=== PATIENT | male | born 1945 | race Caucasian/White ===

== ENCOUNTER 2017-09-30 05:02 | Inpatient (IN) | payer OTHER ==
[2017-09-30] VITALS (12 sets, daily range): BP systolic 132–180; BP diastolic 70–79; PULSE 61–83; RESP 18–20; TEMP 97.7–98.9; O2SAT 98–100
[~2017-09-30] VITALS: Ht 193 cm; Wt 123.6 kg
[2017-09-30] MEDS ORDERED: ZANTTAB PO (10:37)
[2017-09-30 10:58] LABS: AUTOMATED NEUTROPHIL # 3.8 TH/MM3 (1.8-7.7); BASOPHIL # 0.1 TH/MM3 (0-0.2); EOSINOPHIL % 0.1 % (0.0-4.0); HEMATOCRIT 24.2 % (39.0-51.0); HEMOGLOBIN 7.8 GM/DL (13.0-17.0); LYMPH % 13.4 % (9.0-44.0); LYMPHOCYTE # 0.7 TH/MM3 (1.0-4.8); MEAN CELL VOLUME 90.7 FL (80.0-100.0); MEAN CORPUSCULAR HEMOGLOBIN 29.2 PG (27.0-34.0); MEAN CORPUSCULAR HGB CONC 32.2 % (32.0-36.0); MEAN PLATELET VOLUME 8.5 FL (7.0-11.0); MONO % 14.5 % (0.0-8.0); MONOCYTE # 0.8 TH/MM3 (0-0.9); PLATELET COUNT 373 TH/MM3 (150-450); RED BLOOD COUNT 2.67 MIL/MM3 (4.50-5.90); RED CELL DISTRIBUTION WIDTH 16.9 % (11.6-17.2); WHITE BLOOD COUNT 5.3 TH/MM3 (4.0-11.0)
[2017-09-30] MEDS ORDERED: ONDANSETRON ODT 4 MG TAB PO PRN (11:00)
[2017-09-30 11:07] LABS: INTERNATIONAL NORMALIZED RATIO 1.2 RATIO; PROTHROMBIN TIME - PATIENT 12.1 SEC (9.8-11.6)
[2017-09-30 11:09] LABS: BICARBONATE 21.1 MEQ/L (21.0-32.0); CALCIUM 8.1 MG/DL (8.5-10.1); CREATININE 0.88 MG/DL (0.60-1.30)
--- NOTE | 2017-09-30 11:42 | RADRPT ---
EXAM DATE: 09/30/2017 11:29 AM EDT AGE/SEX: 72 years / Male INDICATIONS: Evaluate for pneumonia, pneumothorax, and communicable diseases. Pre-op intestines, per patient. CLINICAL DATA: This is the patient's initial encounter. Patient reports that signs and symptoms have been present for 1 day and indicates a pain score of 3/10. MEDICAL/SURGICAL HISTORY: None. None. COMPARISON: No prior exams available for comparison. FINDINGS: A single AP view of the chest demonstrates the lungs to be symmetrically aerated without evidence of mass, infiltrate or effusion. The cardiomediastinal contours are unremarkable. Osseous structures a re intact. CONCLUSION: No acute intrathoracic disease. Electronically signed by: Ruel Pierre MD 09/30/2017 11:40 AM EDT
--- NOTE | 2017-09-30 12:42 | HHI.PR ---
Subjective Subjective Notes No complaints. He has not felt lightheaded but has been taking it very easy. Does have some shortness of breath especially when he ambulates. Objective Vitals/I&O Vital Signs Date Time Temp Pulse Resp B/P (MAP) Pulse Ox O2 Delivery O2 Flow Rate FiO2 09/30/17 10:12 83 09/30/17 10:05 98.9 18 139/79 (99) 99 Labs Laboratory Tests Test 09/30/17 10:40 White Blood Count 5.3 Red Blood Count 2.67 Hemoglobin 7.8 Hematocrit 24.2 Mean Corpuscular Volume 90.7 Mean Corpuscular Hemoglobin 29.2 Mean Corpuscular Hemoglobin Concent 32.2 Red Cell Distribution Width 16.9 Platelet Count 373 Mean Platelet Volume 8.5 Neutrophils (%) (Auto) 71.0 Lymphocytes (%) (Auto) 13.4 Monocytes (%) (Auto) 14.5 Eosinophils (%) (Auto) 0.1 Basophils (%) (Auto) 1.0 Neutrophils # (Auto) 3.8 Lymphocytes # (Auto) 0.7 Monocytes # (Auto) 0.8 Eosinophils # (Auto) 0.0 Basophils # (Auto) 0.1 CBC Comment DIFF FINAL Differential Comment Prothrombin Time 12.1 Prothromb Time International Ratio 1.2 Activated Partial Thromboplast Time 25.5 Blood Urea Nitrogen 15 Creatinine 0.88 Random Glucose 101 Calcium Level 8.1 Sodium Level 143 Potassium Level 4.0 Chloride Level 113 Carbon Dioxide Level 21.1 Anion Gap 9 Estimat Glomerular Filtration Rate 85 Narrative Exam NAD Abd: soft, ntd Mildly pale A/P Assessment and Plan 72 yo M with small bowel mass and mesenteric involvement. Hemoglobin 7.8, symptomatic with shortness of breath. Will transfuse in preparation for exploratory laparotomy and small bowel resection tomorrow. Danial Brock MD Sep 30, 2017 12:41
[2017-09-30] MEDS: LACTATED RINGER'S 1000 ML INJ 1,000 ML IV SCH (15:11)
[2017-09-30] MEDS: FAMOTIDINE 20 MG TAB PO SCH (19:59)
[2017-10-01] VITALS (9 sets, daily range): BP systolic 125–161; BP diastolic 71–79; PULSE 56–81; RESP 16–20; TEMP 97.6–98.5; O2SAT 93–100
[2017-10-01] MEDS: LACTATED RINGER'S 1000 ML INJ 1,000 ML IV SCH ×2 (00:40→04:59)
--- NOTE | 2017-10-01 07:42 | EKG ---
Date Performed: 09/30/2017 Time Performed: 14:00:42 PTAGE: 72 years EKG: Sinus rhythm NORMAL ECG NO PREVIOUS TRACING DOCTOR: Ron Navas Interpretating Date/Time 10/01/2017 07:41:40
[2017-10-01] MEDS: FAMOTIDINE 20 MG TAB PO SCH ×2 (08:39→22:10)
[2017-10-01 09:24] LABS: HEMATOCRIT 27.9 % (39.0-51.0); HEMOGLOBIN 9.1 GM/DL (13.0-17.0); MEAN CELL VOLUME 90.5 FL (80.0-100.0); MEAN CORPUSCULAR HEMOGLOBIN 29.7 PG (27.0-34.0); MEAN CORPUSCULAR HGB CONC 32.8 % (32.0-36.0); MEAN PLATELET VOLUME 8.5 FL (7.0-11.0); PLATELET COUNT 343 TH/MM3 (150-450); RED BLOOD COUNT 3.08 MIL/MM3 (4.50-5.90); RED CELL DISTRIBUTION WIDTH 15.7 % (11.6-17.2); WHITE BLOOD COUNT 3.7 TH/MM3 (4.0-11.0)
[2017-10-01] MEDS ORDERED: ACETAMINOPHEN 1000 MG/100 ML 100 ML IV ONE (11:48)
[2017-10-01] MEDS ORDERED: ePHEDrine/NS 25 MG/5 ML SYRINGE IV ONE (12:00)
[2017-10-01] MEDS ORDERED: ROCURONIUM INJ 50 MG/5 ML SYRINGE IV PUSH ONE (12:00)
[2017-10-01] MEDS ORDERED: LIDOCAINE HCL 1% PF 5 ML SYRINGE OTHER ONE (12:00)
[2017-10-01] MEDS ORDERED: ONDANSETRON HCL 4 MG/2 ML VIAL IV ONE (12:00)
[2017-10-01] MEDS ORDERED: PROPOFOL 200 MG/20 ML AMP IV ONE (12:00)
[2017-10-01] MEDS ORDERED: NEOSTIGMINE 5 MG/5 ML SYRINGE IV PUSH ONE (12:00)
[2017-10-01] MEDS ORDERED: GLYCOPYRROLATE 1 MG/5 ML SYRINGE IV PUSH ONE (12:00)
[2017-10-01] MEDS ORDERED: DEXAMETHASONE SOD PHOS 4 MG/ML VIAL IV ONE (12:00)
[2017-10-01] MEDS ORDERED: fentaNYL CITRATE 250 MCG/5 ML AMP ONE (12:46)
[2017-10-01] MEDS ORDERED: ceFAZolin 2 GM PREMIX 50 ML ONE (13:10)
[2017-10-01] MEDS ORDERED: metroNIDAZOLE 500 MG INJ 100 ML IV ONE (13:10)
[2017-10-01] MEDS ORDERED: NALOXONE HCL 0.4 MG/ML AMP IV PUSH PRN ×2 (15:00)
[2017-10-01] MEDS ORDERED: diphenhydrAMINE HCL 50 MG/ML VIAL IV PUSH PRN (15:00)
[2017-10-01] MEDS ORDERED: Post-op Orders (for Pharmacy) XX ONE (15:00)
[2017-10-01] MEDS ORDERED: *morphine SULFATE 8 MG/ML PERIprocedure ONLY ONE (15:02)
--- NOTE | 2017-10-01 15:07 | PD.OP ---
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 Extensive mesenteric metastatic disease extending to and involving SMA making this tumor unresectable. Case discussed with radiology Dr. Huffman who also felt that SMA is encircled on recent CT enterogram. Separate loop of small intestine adherent to tumor and omentum coming through an internal hernia. Procedure in detail: The patient was taken to the operating room placed in supine position. General endotracheal anesthesia was induced. The abdomen was prepped and draped in usual sterile fashion and a surgical timeout performed to verify correct patient procedure and site. A lower midline laparotomy incision was made. Electrocautery used to dissect through subcutaneous tissue and the fascia incised. Peritoneum was bluntly entered. On exploration the small bowel mass was immediately encountered and noted to be quite large. The mesentery was also somewhat foreshortened. The laparotomy was extended cephalad. The Bookwalter retractor was placed. On further exploration there was noted to be an approximately 15 cm length of small intestine which was involved with a small intestine tumor. There is extensive mesenteric metastatic disease extending to and involving the SMA which was easily palpable at the level of the tumor. This appeared to be unresectable by both myself and Dr. Mundo Rendon. The case was discussed by phone with both Dr. Ovidio Sumner and Dr. Huffman of radiology. The tumor was felt to be involving fairly high up on the SMA and felt that it was encircling the SMA. We decided that unfortunately this was unresectable. Involved in the mesenteric disease was what appeared to be a replaced lymph node which was removed with the harmonic scalpel and sent for permanent specimen. Vessels of the mesentery were not divided and the bowel remained perfused. A loop of small bowel was adherent to the tumor and is causing internal hernia with omentum also stuck to the tumor. The omentum was divided and placed in the appropriate position. We now prepared for closure. A piece of Seprafilm was placed between the bowel and the omentum. A piece of Seprafilm was placed on top of the omentum. The incision was closed with running #1 looped PDS and wide skin munira. The patient tolerated the procedure well was extubated and taken to PACU in stable condition. Danial Brock MD Oct 01, 2017 15:07
[2017-10-01] MEDS: KETOROLAC TROMETHAMINE 30 MG/ML (IVP) VIAL IV PUSH SCH ×2 (15:34→22:10)
[2017-10-01] MEDS: HYDROmorphone HCL PCA 6 MG/30 ML IV SCH ×2 (15:39→21:03)
[2017-10-01] MEDS: PCA - TOTAL MG DILAUDID DELIVERED PER SHIFT OTHER SCH ×2 (16:00→22:00)
[2017-10-01] MEDS ORDERED: DO NOT ADM ANY ANTICOAGULANT DRUGS PRN (16:00)
[2017-10-01] MEDS ORDERED: ACETAMINOPHEN 1000 MG/100 ML 100 ML IV SCH (16:00)
[2017-10-01] MEDS: ACETAMINOPHEN 1000 MG/100 ML 100 ML IV SCH ×2 (17:55→23:56)
[2017-10-02] VITALS (8 sets, daily range): BP systolic 128–161; BP diastolic 64–87; PULSE 64–74; RESP 17–19; TEMP 97.2–98.1; O2SAT 96–98
[2017-10-02] MEDS: KETOROLAC TROMETHAMINE 30 MG/ML (IVP) VIAL IV PUSH SCH ×4 (04:13→21:20)
[2017-10-02] MEDS: LACTATED RINGER'S 1000 ML INJ 1,000 ML IV SCH (04:14)
[2017-10-02] MEDS: PCA - TOTAL MG DILAUDID DELIVERED PER SHIFT OTHER SCH ×3 (06:00→21:24)
[2017-10-02] MEDS: ACETAMINOPHEN 1000 MG/100 ML 100 ML IV SCH ×2 (06:08→12:48)
[2017-10-02 07:24] LABS: AUTOMATED NEUTROPHIL # 9.7 TH/MM3 (1.8-7.7); BASOPHIL % 0.2 % (0.0-2.0); HEMATOCRIT 31.5 % (39.0-51.0); HEMOGLOBIN 10.2 GM/DL (13.0-17.0); LYMPH % 3.4 % (9.0-44.0); LYMPHOCYTE # 0.4 TH/MM3 (1.0-4.8); MEAN CELL VOLUME 89.9 FL (80.0-100.0); MEAN CORPUSCULAR HEMOGLOBIN 29.3 PG (27.0-34.0); MEAN CORPUSCULAR HGB CONC 32.5 % (32.0-36.0); MONO % 17.6 % (0.0-8.0); MONOCYTE # 2.2 TH/MM3 (0-0.9); NEUT % 78.8 % (16.0-70.0); PLATELET COUNT 352 TH/MM3 (150-450); RED CELL DISTRIBUTION WIDTH 15.8 % (11.6-17.2); WHITE BLOOD COUNT 12.2 TH/MM3 (4.0-11.0)
[2017-10-02 08:41] LABS: BICARBONATE 22.6 MEQ/L (21.0-32.0); CALCIUM 8.4 MG/DL (8.5-10.1); CREATININE 1.01 MG/DL (0.60-1.30)
[2017-10-02] MEDS: FAMOTIDINE 20 MG TAB PO SCH ×2 (10:19→21:19)
[2017-10-02 10:34] LABS: BANDS 11 % (0-6); LYMPHOCYTES 11 % (9-44); MONOCYTES 12 % (0-8); NEUTROPHIL # MANUAL DIFF 9.4 TH/MM3 (1.8-7.7); POLYS (SEG NEUTROPHILS) 66 % (16-70)
[2017-10-02] MEDS: HYDROmorphone HCL PCA 6 MG/30 ML IV SCH (10:42)
--- NOTE | 2017-10-02 12:31 | HHI.PR ---
Subjective Subjective Notes Pain well controlled. Belching, minimal flatus. Has audible wheezing. Denies SOB. Has not been OOB yet. Objective Vitals/I&O Vital Signs Date Time Temp Pulse Resp B/P (MAP) Pulse Ox O2 Delivery O2 Flow Rate FiO2 10/02/17 12:09 97.2 65 18 136/69 (91) 98 10/02/17 10:10 Nasal Cannula 2.00 Labs Laboratory Tests Test 10/02/17 06:32 White Blood Count 12.2 Red Blood Count 3.50 Hemoglobin 10.2 Hematocrit 31.5 Mean Corpuscular Volume 89.9 Mean Corpuscular Hemoglobin 29.3 Mean Corpuscular Hemoglobin Concent 32.5 Red Cell Distribution Width 15.8 Platelet Count 352 Mean Platelet Volume 9.0 Neutrophils (%) (Auto) 78.8 Lymphocytes (%) (Auto) 3.4 Monocytes (%) (Auto) 17.6 Eosinophils (%) (Auto) 0.0 Basophils (%) (Auto) 0.2 Neutrophils # (Auto) 9.7 Lymphocytes # (Auto) 0.4 Monocytes # (Auto) 2.2 Eosinophils # (Auto) 0.0 Basophils # (Auto) 0.0 CBC Comment AUTO DIFF Differential Total Cells Counted 100 Neutrophils % (Manual) 66 Band Neutrophils % 11 Lymphocytes % 11 Monocytes % 12 Neutrophils # (Manual) 9.4 Differential Comment FINAL DIFF MANUAL Platelet Estimate NORMAL Platelet Morphology Comment NORMAL Polychromasia 2.0 Blood Urea Nitrogen 13 Creatinine 1.01 Random Glucose 129 Calcium Level 8.4 Sodium Level 138 Potassium Level 4.4 Chloride Level 105 Carbon Dioxide Level 22.6 Anion Gap 10 Estimat Glomerular Filtration Rate 73 Narrative Exam NAD Audible wheezing, nonlabored breathing Abd: moderate distention, binder, dressing in place A/P Assessment and Plan 72 yo M POD 1 ex lap, mesenteric biopsy. Small bowel mass unresectable. Had long discussion with patient about findings, plan, prognosis. He would like to see oncology in [place] after discharge. Path pending. Cont clears. OOB. 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 D/c IVF and give duonebs. VinodDanial MD Oct 02, 2017 12:31
[2017-10-02] MEDS: ENOXAPARIN SODIUM 40 MG/0.4 ML SYRINGE SQ SCH (14:17)
[2017-10-02] MEDS: RESP: ALBUTEROL 2.5 MG/IPRATROPIUM 0.5 MG NEB (SCH) NEB ×2 (16:52→21:03)
[2017-10-03] VITALS (11 sets, daily range): BP systolic 130–141; BP diastolic 62–76; PULSE 60–82; RESP 17–28; TEMP 97.4–98.3; O2SAT 96–99
[2017-10-03] MEDS: KETOROLAC TROMETHAMINE 30 MG/ML (IVP) VIAL IV PUSH SCH ×4 (03:43→22:14)
[2017-10-03] MEDS: RESP: ALBUTEROL 2.5 MG/IPRATROPIUM 0.5 MG NEB (SCH) NEB ×4 (04:36→21:01)
[2017-10-03] MEDS: PCA - TOTAL MG DILAUDID DELIVERED PER SHIFT OTHER SCH (05:58)
--- NOTE | 2017-10-03 07:41 | HHI.PR ---
Subjective Subjective Notes Pain controlled. Had some bloody oozing from midline incision. Belching but minimal flatus. Objective Vitals/I&O Vital Signs Date Time Temp Pulse Resp B/P (MAP) Pulse Ox O2 Delivery O2 Flow Rate FiO2 10/03/17 05:58 18 10/03/17 04:00 98.2 61 136/76 (96) 98 10/02/17 21:05 Nasal Cannula 1.00 Narrative Exam NAD Nonlabored breathing, wheezing improved Abd: moderate distention, binder, midportion of incision with dried small amt of blood A/P Assessment and Plan 72 yo M POD 2 ex lap, mesenteric biopsy. Small bowel mass unresectable. Pain well controlled, has not had return of bowel function. D/c MERCH[employer]ISING [employer], start oral meds. Cont clears and start reglan. Danial Brock MD Oct 03, 2017 07:41
[2017-10-03] MEDS ORDERED: HYDROmorphone HCL PF 0.5 MG/0.5 ML SYRINGE IV PUSH PRN (07:45)
[2017-10-03] MEDS ORDERED: ACETAMINOPHEN/HYDROcodone 325 MG/5 MG TAB PO PRN (07:45)
[2017-10-03] MEDS: FAMOTIDINE 20 MG TAB PO SCH ×2 (08:54→20:08)
[2017-10-03] MEDS: ACETAMINOPHEN/HYDROcodone 325 MG/5 MG TAB PO PRN ×3 (08:56→20:12)
[2017-10-03] MEDS: METOCLOPRAMIDE HCL 10 MG/2 ML VIAL IV PUSH SCH ×3 (08:56→23:51)
[2017-10-03] MEDS: ENOXAPARIN SODIUM 40 MG/0.4 ML SYRINGE SQ SCH (14:34)
[2017-10-04] VITALS (9 sets, daily range): BP systolic 127–139; BP diastolic 65–74; PULSE 60–90; RESP 16–20; TEMP 97–98.3; O2SAT 96–98
[2017-10-04] MEDS: RESP: ALBUTEROL 2.5 MG/IPRATROPIUM 0.5 MG NEB (SCH) NEB ×4 (04:00→21:20)
[2017-10-04] MEDS: KETOROLAC TROMETHAMINE 30 MG/ML (IVP) VIAL IV PUSH SCH ×4 (04:44→21:37)
[2017-10-04] MEDS: ACETAMINOPHEN/HYDROcodone 325 MG/5 MG TAB PO PRN ×5 (05:04→22:16)
[2017-10-04 06:23] LABS: HEMATOCRIT 26.5 % (39.0-51.0); HEMOGLOBIN 8.8 GM/DL (13.0-17.0); MEAN CELL VOLUME 89.4 FL (80.0-100.0); MEAN CORPUSCULAR HEMOGLOBIN 29.8 PG (27.0-34.0); MEAN CORPUSCULAR HGB CONC 33.3 % (32.0-36.0); MEAN PLATELET VOLUME 8.6 FL (7.0-11.0); PLATELET COUNT 288 TH/MM3 (150-450); RED BLOOD COUNT 2.96 MIL/MM3 (4.50-5.90); RED CELL DISTRIBUTION WIDTH 15.6 % (11.6-17.2); WHITE BLOOD COUNT 4.8 TH/MM3 (4.0-11.0)
[2017-10-04 06:53] LABS: ALBUMIN 2.9 GM/DL (3.4-5.0); AST (GOT) 16 U/L (15-37); BICARBONATE 25.9 MEQ/L (21.0-32.0); BLOOD UREA NITROGEN 11 MG/DL (7-18); CALCIUM 8.3 MG/DL (8.5-10.1); CHLORIDE 106 MEQ/L (98-107); CREATININE 0.97 MG/DL (0.60-1.30); GLOMERULAR FILTRATION RATE 76 ML/MIN (>89); GLUCOSE,RANDOM 87 MG/DL (74-106); SODIUM (NA) 141 MEQ/L (136-145)
[2017-10-04 06:54] LABS: ALT (GPT) 15 U/L (12-78)
[2017-10-04 06:56] LABS: ALKALINE PHOSPHATASE 44 U/L (45-117); TOTAL BILIRUBIN ADULT 0.8 MG/DL (0.2-1.0); TOTAL PROTEIN 5.8 GM/DL (6.4-8.2)
[2017-10-04] MEDS: METOCLOPRAMIDE HCL 10 MG/2 ML VIAL IV PUSH SCH ×2 (09:30→16:15)
[2017-10-04] MEDS: FAMOTIDINE 20 MG TAB PO SCH ×2 (09:30→20:07)
--- NOTE | 2017-10-04 13:10 | HHI.PR ---
Subjective Subjective Notes pt lying in bed comfortably no complaints passing gas Objective Vitals/I&O Vital Signs Date Time Temp Pulse Resp B/P (MAP) Pulse Ox O2 Delivery O2 Flow Rate FiO2 10/04/17 09:13 98 Nasal Cannula 2.00 10/04/17 08:30 60 10/04/17 08:00 97.0 16 137/71 (93) Labs Laboratory Tests Test 10/04/17 05:35 White Blood Count 4.8 Red Blood Count 2.96 Hemoglobin 8.8 Hematocrit 26.5 Mean Corpuscular Volume 89.4 Mean Corpuscular Hemoglobin 29.8 Mean Corpuscular Hemoglobin Concent 33.3 Red Cell Distribution Width 15.6 Platelet Count 288 Mean Platelet Volume 8.6 Blood Urea Nitrogen 11 Creatinine 0.97 Random Glucose 87 Total Protein 5.8 Albumin 2.9 Calcium Level 8.3 Alkaline Phosphatase 44 Aspartate Amino Transf (AST/SGOT) 16 Alanine Aminotransferase (ALT/SGPT) 15 Total Bilirubin 0.8 Sodium Level 141 Potassium Level 3.9 Chloride Level 106 Carbon Dioxide Level 25.9 Anion Gap 9 Estimat Glomerular Filtration Rate 76 Abdomen: Post-op tenderness Extremities: Perfused Narrative Exam serosang drainage on dressing small amount Wound Wound : Wound Location: Abdomen Dressing: Dry A/P Assessment and Plan pt doing well advance diet as tolerated possible d/c home tomorrow Anant Peunte MD Oct 04, 2017 13:10
[2017-10-04] MEDS ORDERED: MAGNESIUM HYDROXIDE SUSP 30 ML CUP PO PRN (13:15)
[2017-10-04] MEDS: ENOXAPARIN SODIUM 40 MG/0.4 ML SYRINGE SQ SCH (13:37)
[2017-10-05] VITALS: BP 147/70; PULSE 67; PULSE 72; RESP 20; TEMP 97.6; O2SAT 97
[2017-10-05] MEDS: METOCLOPRAMIDE HCL 10 MG/2 ML VIAL IV PUSH SCH ×2 (00:07→07:57)
[2017-10-05] MEDS: RESP: ALBUTEROL 2.5 MG/IPRATROPIUM 0.5 MG NEB (SCH) NEB ×2 (03:31→10:58)
[2017-10-05] MEDS: KETOROLAC TROMETHAMINE 30 MG/ML (IVP) VIAL IV PUSH SCH ×2 (03:40→09:57)
[2017-10-05] MEDS: ACETAMINOPHEN/HYDROcodone 325 MG/5 MG TAB PO PRN (03:41)
[2017-10-05 04:00] VITALS: BP 169/81; PULSE 74; PULSE 79; RESP 20; TEMP 97.7; O2SAT 96
[2017-10-05] MEDS: FAMOTIDINE 20 MG TAB PO SCH (07:57)
[2017-10-05 08:00] VITALS: BP 135/90; PULSE 78; RESP 18; TEMP 98; O2SAT 99
[2017-10-05 08:40] VITALS: PULSE 70
[2017-10-05 10:57] VITALS: RESP 18
[2017-10-05] MEDS ORDERED: COLA100C5 PO (11:10)
[2017-10-05] MEDS ORDERED: NORC5TAB PO (11:10)
--- NOTE | 2017-10-05 11:12 | HHI.PR ---
Subjective Subjective Notes pt comfortable passing gas Objective Vitals/I&O Vital Signs Date Time Temp Pulse Resp B/P (MAP) Pulse Ox O2 Delivery O2 Flow Rate FiO2 10/05/17 11:02 21 10/05/17 08:40 70 10/05/17 04:00 97.7 20 169/81 (110) 96 10/04/17 21:20 Nasal Cannula 2.00 Abdomen: Post-op tenderness Wound Wound : Wound Location: Abdomen Appearance: Clean & Dry A/P Assessment and Plan pt doing well D/C home today f/u dr valencia next week Anant Puente MD Oct 05, 2017 11:12
== END 2017-10-05 13:00 | disposition home or self-care (01) | DRG 825 ==
LOC: EDSTATUS 05:02 → HCIN 09:08 → N06B 10-01 20:21
PROVIDERS: ADMIT Surgery; ATTEND Surgery
PROC: 0DNU0ZZ Release Omentum, Open Approach (ICD-10-PCS; principal; 2017-09-30)
PROC: 07BB0ZX Excision of Mesenteric Lymphatic, Open Approach, Diagnostic (ICD-10-PCS; 2017-09-30)
PROC: 3E0M05Z Introduction of Adhesion Barrier into Peritoneal Cavity, Open Approach (ICD-10-PCS; 2017-09-30)
DX: C83.38 Diffuse large B-cell lymphoma, lymph nodes of multiple sites (principal); D63.0 Anemia in neoplastic disease; K21.9 Gastro-esophageal reflux disease without esophagitis; K46.9 Unspecified abdominal hernia without obstruction or gangrene; R06.2 Wheezing; F41.9 Anxiety disorder, unspecified; Z87.891 Personal history of nicotine dependence; Z98.1 Arthrodesis status; Z96.652 Presence of left artificial knee joint
CPT/HCPCS: 36430; 71045; 76937; 80048; 80053; 85007; 85025; 85027; 85610; 85730; 86850; 86900; 86901; 86920; 88305; 88341; 88342; 93005; 94150; 94640; 94664; C1765; J0131; J0690; J1100; J1170; J1650; J1885; J2270; J2405; J2710; J2765; J3010; J7120; P9016

== ENCOUNTER 2018-01-20 13:20 | Inpatient (IN) ==
[2018-01-20] MEDS ORDERED: Bisacodyl 10 MG Supp RECTAL PRN (17:27)
--- NOTE | 2018-01-20 17:27 | P.CONGS ---
[facility] Gen Surgery Consult Note Consult date: 01/20/18 Narrative: 72 yo M with abdominal pain, bloating, decreased oral intake for 10 days, worse for the last 3 days. He has a h/o GI bleed noted to be secondary to small bowel mass and underwent exploratory laparotomy revealing large mass of root of mesentery with associated small bowel involvement. Resection was unable to be performed and biopsy revealed large B cell lymphoma. He has undergo two cycles of chemotherapy under care of Dr. Catherine with good response based on recent PET /CT. He has continued to have bowel movts but they have been liquid. For two days he has only tolerated saltine crackers. Review of Systems All other systems reviewed negative except as stated in [facility] - History History Provided By: Patient - Medical History Medical History: Medical History (Last Reviewed 10/28/17 @ 09:10 by Yudy Frederick RN) Abdominal mass Anemia Compression of sciatic nerve GERD (gastroesophageal reflux disease) - Surgical History Surgical History: Surgical History (Last Updated 10/28/17 @ 09:35 by Yudy Frederick RN) H/O abdominal surgery H/O shoulder surgery History of tonsillectomy and adenoidectomy Status post left partial knee replacement - Tobacco History Second Hand Smoke Exposure: No Smoking Status: Former smoker - Alcohol History How Often Do You Have a Drink Containing Alcohol: Never - Substance Use History Substance History: No History of Abuse Medications and Allergies Allergies Allergy/AdvReac Type Severity Reaction Status Date / Time No Known Allergies Allergy Verified 12/03/17 10:18 Home Medications Medication Instructions Recorded Confirmed Type docusate sodium 100 mg PO DAILY PRN 10/24/17 10/28/17 History ferrous sulfate 325 mg PO DAILY 10/24/17 10/28/17 History ranitidine HCl [Zantac] 150 mg PO BID 10/24/17 10/28/17 History Exam Vital signs: Vital Signs 01/20/18 16:25 Temperature 98.1 F Pulse Rate 80 Respiratory Rate 18 Blood Pressure 137/82 Pulse Oximetry 98 Intake & Output 01/19/18 01/20/18 01/20/18 18:59 06:59 18:59 Weight 113.398 kg Other: Date of Last Bowel Movement 01/19/18 Weight On Admission 113.398 kg Narrative: GENERAL: Awake and alert. No acute distress. Cooperative. HEAD: Normocephalic. Atraumatic. EYES: Pupils equal round and reactive to light bilaterally. No scleral icterus. ENT: Moist oral mucosa. NECK: Trachea midline. CHEST: Nonlabored breathing. No respiratory distress. CARDIOVASCULAR: Regular rate and rhythm. ABDOMEN: soft, well healed midline scar. mild distention. Nontender. EXTREMITIES: No cyanosis or edema. SKIN: Warm, dry, nonjaundiced. Assessment and Plan - Assessment (1) Small bowel obstruction Code(s): K56.609 - Unspecified intestinal obstruction, unspecified as to partial versus complete obstruction Status: Acute (2) Lymphoma of gastrointestinal tract Code(s): C85.93 - Non-Hodgkin lymphoma, unspecified, intra-abdominal lymph nodes Status: Acute - Plan Partial or complete small bowel obstruction- Check KUB. May need CT a/p with oral contrast. Continue NPO.
[2018-01-20] MEDS ORDERED: KCL 20 mEq/NACL 0.45% Inj 1,000 ML IV.CONT SCH (17:30)
--- NOTE | 2018-01-20 18:18 | XR ---
EXAM DATE: 01/20/2018 12:00 AM EDT AGE/SEX: 72 years / Male INDICATIONS: Obstruction. CLINICAL DATA: This is the patient's initial encounter. Patient reports that signs and symptoms have been present for 1 day and indicates a pain score of 0/10. MEDICAL/SURGICAL HISTORY: . Lymphoma. Chronic obstructive pulmonary disease. None. COMPARISON: No prior exams available for comparison. FINDINGS: There is dilated small bowel in the left mid abdomen. Stool seen within colon. The colon is not dist ended. Free air is not seen. There is degenerative change in the lower lumbar spine. CONCLUSION: Dilated small bowel in the left mid abdomen concerning for some degree of obstruction. Electronically signed by: Tavares Valdez MD 01/20/2018 6:17 PM EDT
[2018-01-20] MEDS: NACL 0.9% IV.CONT SCH ×2 (19:25→20:08)
[2018-01-20] MEDS: POTASSIUM CHLORIDE IV.CONT SCH ×2 (19:25→20:08)
[2018-01-20] MEDS: DEXTROSE IV.CONT SCH ×2 (19:25→20:08)
--- NOTE | 2018-01-20 19:29 | MH ---
cc: Lydia Catherine MD DATE OF ADMISSION: 01/20/2018 ADMISSION DIAGNOSIS: Partial small-bowel obstruction. SECONDARY DIAGNOSES: 1. Mesenteric large B-cell lymphoma. 2. History of gastrointestinal bleed. 3. Anemia. 4. Abdominal pain. HISTORY OF PRESENT ILLNESS: Mr. Reina is a 72-year-old man, well known patient, who presented with a history of blood loss anemia about a year and a half ago. Evaluation showed a nodular mass in the small bowel mesentery in the left mid abdomen. Additionally, there were 2 exophytic masses involving the lateral left kidney. Exploratory surgery was performed by Dr. Brock on 10/01/2017. The mesenteric mass biopsy showed a large cell B-cell lymphoma. He was treated with R-CHOP chemotherapy with his first cycle on 12/09/2017. He tolerated his cycles of chemotherapy well. Interim evaluation by CT PET scan showed resolution of the previous hypermetabolic left lower quadrant mass in the left lateral chest subcutaneous nodule. These were the sites of initial disease. There is, however, interval development of moderate dilatation of small loops of bowel in the right lower quadrant and small hypermetabolic focus either within or adjacent to the dilated loop of bowel without correlating to CT abnormality. Mr. Reina comes in today [address] PET scan with persistent symptoms. He has had a decrease in appetite in the last 2 weeks. His p.o. intake has decreased significantly. Despite the decreased p.o. intake, his abdominal girth has increased. He is quite distended. He could not fit into certain pants. He denies any melena or bright red blood per rectum. His stools have turned liquidy. He denies any urinary complaints. He has no fever. He has had cramping abdominal pain, which is quite uncomfortable. He was seen in clinic today for his cycle #3 of rituximab-CHOP chemotherapy. We discussed proceeding with the rituximab awaiting a bed for admission for his partial small-bowel obstruction. His admission was coordinated with Dr. Frank Rose, of [facility] and Dr. Danial Brock, who is the patient's surgeon. REVIEW OF SYSTEMS: The rest of his review of system is negative. Denies any fevers, chills, night sweats. He was doing well after his chemotherapy. He has resumed his physical activity. His anemia has improved. He denies any GI bleed. His hemoglobin is actually improved. A CBC from [facility] on 01/16/2018 shows a normal comprehensive metabolic panel with a BUN of 13, creatinine 0.99. Liver functions are normal. LDH is 191. WBC was 5.4, hemoglobin 11.3, improved from before, and platelet count of 405. PAST MEDICAL HISTORY: 1. Erectile dysfunction. 2. Mesenteric B-cell lymphoma/non Hodgkin lymphoma. 3. GI bleed. 4. Iron deficiency anemia secondary to GI bleed. PAST SURGICAL HISTORY: 1. Colonoscopy. 2. Tonsillectomy. 3. Exploratory surgery. 4. Port placement. FAMILY HISTORY: Significant for a paternal grandfather with lung cancer. No other family history of cancer. SOCIAL HISTORY: He is single. 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 He quit smoking 20 years ago. He drinks occasionally. He has a supportive friend who brings him to his appointments. ALLERGIES: NO KNOWN DRUG ALLERGIES. CURRENT MEDICATIONS: Include: 1. Zantac. 2. Stool softener. 3. Oral iron supplement. PHYSICAL EXAMINATION: VITAL SIGNS: Temperature 98.1, heart rate 80, respiratory rate 18, blood pressure 137/82, saturation 100%. GENERAL: Mr. Reina is a well-developed, well-nourished man who looks younger than stated age. HEENT: His pupils are round and reactive to light and accommodation. Oropharynx is clear. NECK: Supple. LUNGS: Clear. CARDIOVASCULAR: Reveals a normal rate and rhythm. ABDOMEN: Distended from previous exams. There are a lot of bowel sounds. There is a diffuse tenderness, but the abdomen is soft. No guarding or rebound. There is significant distention with no mass appreciated. EXTREMITIES: Lower extremities with no edema. NEUROLOGIC: Nonfocal. LABORATORY DATA: As described above, normal comprehensive metabolic panel on 01/16/2018. ASSESSMENT AND PLAN: Mr. Reina is a 72-year-old man with a history of gastrointestinal bleed, who was found to have a diffuse large B-cell lymphoma in the mesentery. He also had a metastatic lesion in the left flank area. He has had an excellent response to rituximab-CHOP chemotherapy with resolution of the sites of disease. His course is complicated by abdominal pain, bloating and evidence for a partial small-bowel obstruction. He is having intermittent watery bowel movements. He is significantly uncomfortable. He has had no resolution of symptoms over the past 2 weeks. He is admitted to the hospital for a consultation with the paratransit operator possibly and with Dr. Brock, his surgeon. We discussed continued conservative management with n.p.o. and intravenous fluid hydration support. A dietitian will be consulted tomorrow for possible total parenteral nutrition depending on how long he needs to be n.p.o. CT scan of the abdomen and pelvis will be coordinated to assist with Dr. Brock's evaluation. He has had resolution of disease in the root of the mesentery; however, there is evidence of the bowel obstruction. A CT scan would hopefully assist in determining the area of obstruction. He was able to receive his Rituxan chemotherapy. Cytotoxic chemotherapy CHOP was held pending resolution of his partial small-bowel obstruction. His questions were answered to his satisfaction. MD NOY Stiles/shelly , 06:48 PM , 07:02 PM
[2018-01-20] MEDS: Senna/Docusate Sodium 8.6/50 MG Tablet PO SCH (20:06)
[2018-01-20] MEDS: KCL 20 mEq/D5W/NaCl 0.9% Inj 1,000 ML IV.SIG SCH (20:08)
[2018-01-20] MEDS ORDERED: Diatrizoate Meglum/Diatrizoate Sod Liq 9 ML UDC PO ONE (21:45)
--- NOTE | 2018-01-21 00:37 | CT ---
EXAM DATE: 01/21/2018 12:06 AM EDT AGE/SEX: 72 years / Male INDICATIONS: Abdominal distention. CLINICAL DATA: This is the patient's initial encounter. Patient reports that signs and symptoms have been present for 1 day and indicates a pain score of 6/10. MEDICAL/SURGICAL HISTORY: . small bowel mass, chemo None. ORAL CONTRAST: Prescribed oral contrast ingested. RADIATION DOSE: 15.08 CTDI (mGy) COMPARISON: POI, CT ENTEROGRAPHY, 09/24/2017. TLI, PET/CT TUMOR, 01/15/2018. . TECHNIQUE: Multiple contiguous axial images were obtained through the abdomen and pelvis following b olus infusion of 93 ml Omnipaque 350 (iohexol) nonionic water-soluble contrast as a single exam dos e. Prescribed oral contrast ingested. Using automated exposure control and adjustment of the mA and/ or kV according to patient size, radiation dose was kept as low as reasonably achievable to obtain op timal diagnostic quality images. DICOM format image data is available electronically for review and comparison. FINDINGS: Lower chest: No acute abnormality is identified. Hepatobiliary: No focal liver lesion is identified. Hepatic vasculature demonstrates no abnormality. No calcified gallstones are present. Kidneys: No hydronephrosis, stone, or mass. There are 2 low-density lesions in the right kidney measu ring 2.7 cm and 4.3 cm, both of which have density measurements characteristic of cirrhosis. A small lesion in the right mid kidney is also too small to characterize. There are 2 exophytic lesions arisi ng from the left kidney measuring 1.7 and 2.9 cm. These also have features characteristic of cysts. Adrenal Glands: Within normal limits. Spleen: Within normal limits. Pancreas: Within normal limits. Vascular: The aorta is nonaneurysmal. There is mild atherosclerotic disease. Bowel/Mesentery: Stomach demonstrates no abnormality. The jejunum is abnormally dilated measuring up to 5.6 cm and demonstrates air-fluid levels. Caliber changes in the left lower quadrant where there i s inflammatory change in the adjacent mesentery. No clear mass is identified. The distal small bowel is decompressed. There is trace free fluid in the pelvis. No free air is visualized. Abdominal Wall: There are postsurgical changes on the anterior abdominal wall in the midline. Retroperitoneum: No lymphadenopathy. Bladder: No wall thickening or mass. Reproductive: Within normal limits. Inguinal: No lymphadenopathy or hernia. Musculoskeletal: No acute osseous abnormality is identified. There are degenerative changes of the corina mbar spine. CONCLUSION: 1. There is abnormal dilated and fluid-filled jejunum measuring up to 5.6 cm with the caliber change at the left lower quadrant. Findings are indicative of some degree of small bowel obstruction. Since no mass is identified at the site, adhesion, stricture, or small occult bowel lesion are considerati ons. These findings are new since the PET CT from 6 days ago. 2. There is trace free fluid within the pelvis, stable over the past 6 days. Electronically signed by: Tavares Ness MD 01/21/2018 12:36 AM EDT
[2018-01-21 05:42] LABS: Baso % (Auto) 0.4 % (0.0-2.0); Eos % (Auto) 0.2 % (0.0-4.0); Hematocrit 31.6 % (39.0-51.0); Hemoglobin 10.4 gm/dL (13.0-17.0); Lymph # (Auto) 0.6 th/mm3 (1.0-4.8); Lymph % (Auto) 10.1 % (9.0-44.0); Mean Corpuscular HGB Conc 32.8 % (32.0-36.0); Mean Corpuscular Hemoglobin 28.5 pg (27.0-34.0); Mean Corpuscular Volume 86.9 fL (80.0-100.0); Mean Platelet Volume 7.9 fL (7.0-11.0); Mono # (Auto) 1.7 th/mm3 (0.0-0.9); Neut # (Auto) 3.4 th/mm3 (1.8-7.7); Neut % (Auto) 60.3 % (16.0-70.0); Platelet Count 355 th/mm3 (150-450); Red Blood Count 3.64 mil/mm3 (4.50-5.90); Red Cell Distribution Width 16.8 % (11.6-17.2); White Blood Count 5.7 th/mm3 (4.0-11.0)
[2018-01-21 05:43] LABS: Reticulocyte Percent 1.3 % (0.4-3.0)
[2018-01-21 06:07] LABS: Calcium 7.5 mg/dL (8.5-10.1); Carbon Dioxide 21.3 meq/L (21.0-32.0); Magnesium 1.9 mg/dL (1.5-2.5); Potassium 4.1 meq/L (3.5-5.1)
[2018-01-21 08:30] LABS: Lymphocytes 13 % (9-44); Monocytes 13 % (0-8); Ovalocytes 1+; Platelet Estimate Normal (Normal); Platelet Morphology Normal (Normal)
[2018-01-21] MEDS: Senna/Docusate Sodium 8.6/50 MG Tablet PO SCH ×2 (09:00→20:49)
--- NOTE | 2018-01-21 09:23 | P.CONIM ---
History of Present Illness Service: [facility] Requesting Physician: Lydia Catherine Reason for Consult: Partial small bowel obstruction medical management Primary Care Provider: Dr. Abhay Fajardo History of Present Illness: This is a 72-year-old male patient with past medical history which includes mesenteric B cell lymphoma/non-Hodgkin's lymphoma, GI bleed, iron deficiency anemia, GERD. Patient has had a history of GI bleed noted to be secondary to small bowel mass and underwent expiratory laparotomy revealing large mass in the root of mesentery with associated small bowel involvement. Resection was unable to be performed and biopsy revealed large B-cell lymphoma. Patient underwent 2 cycles of chemotherapy with oncologist Dr. Catherine with a good response based on recent PET/CT. Per Dr. Catherine CT PET scan showed resolution of the previous hypermetabolic left lower quadrant mass in the left lateral chest subcutaneous nodule. These were the sites of initial disease. There is, however, interval development of moderate dilatation of small loops of bowel in the right lower quadrant and small hypermetabolic focus either within or adjacent to the dilated loop of bowel without correlating to CT abnormality. Patient now presents to [facility] after evaluation at Dr. Catherine' s office 01/20/2018. Patient reports decreased appetite for the past 2 weeks, decreased p.o. intake and increased abdominal girth. Patient symptoms have been worsening over the last 3-5 days. Patient reports he is unable to fit in the some of his close due to the increase in abdominal girth. Patient also reports liquid stools. Patient endorses intermittent abdominal cramping which is quite uncomfortable. Patient denies N/V. Patient denies bright red blood or black tarry stools. Patient also denies fever chills shortness of breath or chest pain. Abdomen X-Ray reveals:Dilated small bowel in the left mid abdomen concerning for some degree of obstruction. Abdomen/Pelvis CT reveals: 1. There is abnormal dilated and fluid-filled jejunum measuring up to 5.6 cm with the caliber change at the left lower quadrant. Findings are indicative of some degree of small bowel obstruction. Since no mass is identified at the site , adhesion, stricture, or small occult bowel lesion are considerations. These findings are new since the PET CT from 6 days ago. 2. There is trace free fluid within the pelvis, stable over the past 6 days. 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 Quit smoking 20 years ago Occasional EtOH use not on a daily basis Review of Systems All other systems reviewed negative except as stated in HPI PMFSH - History History Provided By: Patient - Medical History Medical History: Medical History (Last Reviewed 10/28/17 @ 09:10 by Yudy Frederick RN) Abdominal mass Anemia Compression of sciatic nerve GERD (gastroesophageal reflux disease) - Surgical History Surgical History: Surgical History (Last Updated 10/28/17 @ 09:35 by Yudy Frederick RN) H/O abdominal surgery H/O shoulder surgery History of tonsillectomy and adenoidectomy Status post left partial knee replacement - Tobacco History Second Hand Smoke Exposure: No Smoking Status: Former smoker - Alcohol History How Often Do You Have a Drink Containing Alcohol: Never - Substance Use History Substance History: No History of Abuse - Immunization History Tetanus Immunization: <5 Years Tetanus Immunization Year if Known: 2017 Hx Influenza Vaccine This Season: No Medications and Allergies Allergies Allergy/AdvReac Type Severity Reaction Status Date / Time No Known Allergies Allergy Verified 12/03/17 10:18 Home Medications Medication Instructions Recorded Confirmed Type docusate sodium 100 mg PO DAILY PRN 10/24/17 01/20/18 History ferrous sulfate 325 mg PO DAILY 10/24/17 01/20/18 History ranitidine HCl [Zantac] 150 mg PO BID PRN 10/24/17 01/20/18 History Active Medications: Active Medications Al Hydroxide/Mg Hydroxide (Milk Of Magnesia Liq) 30 ml PO Q12H PRN PRN Reason: Mild Constipation Bisacodyl (Dulcolax Supp) 10 mg RECTAL DAILY PRN PRN Reason: SEVERE CONSITIPATION Potassium Chloride/Sodium Chloride (Potassium Chlor 20 Meq/Nacl 0.45% Inj) 1, 000 mls @ 84 mls/hr IV.CONT .[id number] [facility] Last Admin: 01/20/18 21:37 Dose: Not Given Potassium Chloride/Dextrose/Sod Cl (D5w/Ns + Kcl 20 Meq Inj) 1,000 mls @ 75 mls /hr IV.SIG .[id number] [facility] Last Admin: 01/20/18 20:08 Dose: Not Given Lactulose (Lactulose Liq) 30 ml PO DAILY PRN PRN Reason: SEVERE CONSITIPATION Senna/Docusate Sodium (Mimi-Colace) 1 tab PO BID [facility] Last Admin: 01/20/18 20:06 Dose: 1 tab Sennosides (Senokot) 17.2 mg PO Q12H PRN PRN Reason: Moderate Constipation Exam Vital signs: Vital Signs 01/20/18 16:25 01/20/18 20:00 01/20/18 20:19 Temperature 98.1 F 97.8 F Pulse Rate 80 66 64 Respiratory Rate 18 16 Blood Pressure 137/82 136/83 Pulse Oximetry 98 96 01/21/18 00:00 01/21/18 00:35 01/21/18 04:00 Temperature 97.8 F 97.1 F L Pulse Rate 78 76 70 Respiratory Rate 18 16 Blood Pressure 116/76 119/68 Pulse Oximetry 97 98 01/21/18 07:43 Temperature Pulse Rate 63 Respiratory Rate Blood Pressure Pulse Oximetry Intake & Output 01/20/18 01/21/18 01/21/18 18:59 06:59 18:59 Intake Total 0 / 0 630 / 630 Output Total 1800 / 1800 Balance 0 / 0 -1170 / -1170 Weight 113.398 kg 113.5 kg Intake: Oral 0 / 0 630 / 630 Output: Urine 1800 / 1800 Other: Date of Last Bowel Movement 01/19/18 01/19/18 Weight On Admission 113.398 kg Narrative: GENERAL: This is a well-nourished, well-developed patient, CARDIOVASCULAR: Regular rate and rhythm RESPIRATORY: Clear to auscultation. Breath sounds equal bilaterally. GASTROINTESTINAL: Abdomen soft, non-tender, mild distention, scant bowel sounds MUSCULOSKELETAL: Extremities without clubbing, cyanosis, or edema. NEURO: Alert & Oriented x4 to person, place, time, situation. Moves all ext x4 Results - Labs CBC & Chem 7: 01/25/18 04:10 01/25/18 04:10 Labs: Laboratory Results - last 24 hr 01/21/18 01/21/18 01/21/18 04:00 04:00 04:00 WBC 5.7 RBC 3.64 L Hgb 10.4 L Hct 31.6 L MCV 86.9 MCH 28.5 MCHC 32.8 RDW 16.8 Plt Count 355 MPV 7.9 Prelim Diff (Auto) Slide review pending Neut % (Auto) 60.3 Lymph % (Auto) 10.1 [place] % (Auto) 29.0 H Eos % (Auto) 0.2 Baso % (Auto) 0.4 Neut # (Auto) 3.4 Lymph # (Auto) 0.6 L [place] # (Auto) 1.7 H Eos # (Auto) 0.0 Baso # (Auto) 0.0 WBC Differential Manual diff final Seg Neuts % (Manual) 63 Band Neuts % (Manual) 11 H Lymphocytes % (Manual) 13 Monocytes % (Manual) 13 H Abs Neuts (Manual) 4.2 Differential Comment . Platelet Estimate Normal Platelet Morphology Normal Ovalocytes 1+ H Retic Count 1.3 Absolute Retic 48.1 Sodium 141 Potassium 4.1 Chloride 110 H Carbon Dioxide 21.3 Anion Gap 10 BUN 11 Creatinine 0.88 Estimated GFR 85 L Random Glucose 84 Calcium 7.5 L Magnesium 1.9 Lactate Dehydrogenase 230 - Imaging Impressions Abdomen X-Ray 01/20/18 00:00 CONCLUSION: Dilated small bowel in the left mid abdomen concerning for some degree of obstruction. Abdomen/Pelvis CT 01/21/18 00:00 CONCLUSION: 1. There is abnormal dilated and fluid-filled jejunum measuring up to 5.6 cm with the caliber change at the left lower quadrant. Findings are indicative of some degree of small bowel obstruction. Since no mass is identified at the site , adhesion, stricture, or small occult bowel lesion are considerations. These findings are new since the PET CT from 6 days ago. 2. There is trace free fluid within the pelvis, stable over the past 6 days. Assessment and Plan - Assessment (1) Partial small bowel obstruction Code(s): K56.600 - Partial intestinal obstruction, unspecified as to cause Status: Acute Plan: This is a 72-year-old male patient with past medical history which includes mesenteric B cell lymphoma/non-Hodgkin's lymphoma, GI bleed, iron deficiency anemia, GERD. Patient has had a history of GI bleed noted to be secondary to small bowel mass and underwent expiratory laparotomy revealing large mass in the root of mesentery with associated small bowel involvement. Resection was unable to be performed and biopsy revealed large B-cell lymphoma. Patient underwent 2 cycles of chemotherapy with oncologist Dr. Catherine with a good response based on recent PET/CT. Per Dr. Catherine CT PET scan showed resolution of the previous hypermetabolic left lower quadrant mass in the left lateral chest subcutaneous nodule. These were the sites of initial disease. There is, however, interval development of moderate dilatation of small loops of bowel in the right lower quadrant and small hypermetabolic focus either within or adjacent to the dilated loop of bowel without correlating to CT abnormality. Patient now presents to [facility] after evaluation at Dr. Catherine' s office 01/20/2018. Patient reports decreased appetite for the past 2 weeks, decreased p.o. intake and increased abdominal girth with liquid stools and abdominal cramping. Patient symptoms have been worsening over the last 3-5 days. Partial SBO -Abdomen X-Ray reveals:Dilated small bowel in the left mid abdomen concerning for some degree of obstruction. - Abdomen/Pelvis CT reveals: 1. There is abnormal dilated and fluid-filled jejunum measuring up to 5.6 cm with the caliber change at the left lower quadrant. Findings are indicative of some degree of small bowel obstruction. Since no mass is identified at the site, adhesion, stricture, or small occult bowel lesion are considerations. These findings are new since the PET CT from 6 days ago. 2. There is trace free fluid within the pelvis, stable over the past 6 days. - NPO at this time - IVFs 1/2 NS with 20 meq KCL 84ml/hour - Consult to general surgery, patient known to Dr. Brock from previous admissions - Dr. Rose discussed that case with Dr. Brock, no surgical plans at this time , continue to monitor Mesenteric B cell lymphoma/non-Hodgkin's lymphoma - management per Dr. Catherine - to rituximab-CHOP chemotherapy with resolution of the sites of disease x 2 - He was able to receive his Rituxan chemotherapy 01/20/18. Cytotoxic chemotherapy CHOP was held pending resolution of his partial small-bowel obstruction. Iron deficiency anemia - Will resume ferrous Sulfate PO once patient able to take PO intake GERD - IV Protonix DVT prophylaxis with SCDs - Attending Attestation Patient examined. Assessment and plan formulated with Amanda COBOS-Elbert. I agree with the above.
[2018-01-21] MEDS: Pantoprazole Inj 40 MG Vial IV.PUSH SCH (09:53)
[2018-01-21] MEDS: KCL 20 mEq/D5W/NaCl 0.9% Inj 1,000 ML IV.SIG SCH ×2 (09:53→21:52)
--- NOTE | 2018-01-21 10:42 | P.PNONC ---
Subjective Interval history: Afebrile, resting comfortably in bed. Patient continues to be n.p.o. for partial small bowel obstruction. He denies any abdominal pain, stating "as long as I do not eat, I do not have pain." Denies diarrhea at this time. Urinating appropriately. Objective Vital Signs/Intake & Output: Vital Signs 01/20/18 16:25 01/20/18 20:00 01/20/18 20:19 Temperature 98.1 F 97.8 F Pulse Rate 80 66 64 Respiratory Rate 18 16 Blood Pressure 137/82 136/83 Pulse Oximetry 98 96 01/21/18 00:00 01/21/18 00:35 01/21/18 04:00 Temperature 97.8 F 97.1 F L Pulse Rate 78 76 70 Respiratory Rate 18 16 Blood Pressure 116/76 119/68 Pulse Oximetry 97 98 01/21/18 07:43 01/21/18 09:05 Temperature 98.5 F Pulse Rate 63 63 Respiratory Rate 18 Blood Pressure 139/76 Pulse Oximetry 96 Intake & Output 01/20/18 01/21/18 01/21/18 18:59 06:59 18:59 Intake Total 0 / 0 630 / 630 Output Total 1800 / 1800 Balance 0 / 0 -1170 / -1170 Weight 113.398 kg 113.5 kg Intake: Oral 0 / 0 630 / 630 Output: Urine 1800 / 1800 Other: Date of Last Bowel Movement 01/19/18 01/19/18 Weight On Admission 113.398 kg Result Diagrams: 01/21/18 04:00 01/21/18 04:00 Laboratory Results: Laboratory Results - last 24 hr 01/21/18 01/21/18 01/21/18 04:00 04:00 04:00 WBC 5.7 RBC 3.64 L Hgb 10.4 L Hct 31.6 L MCV 86.9 MCH 28.5 MCHC 32.8 RDW 16.8 Plt Count 355 MPV 7.9 Prelim Diff (Auto) Slide review pending Neut % (Auto) 60.3 Lymph % (Auto) 10.1 [place] % (Auto) 29.0 H Eos % (Auto) 0.2 Baso % (Auto) 0.4 Neut # (Auto) 3.4 Lymph # (Auto) 0.6 L [place] # (Auto) 1.7 H Eos # (Auto) 0.0 Baso # (Auto) 0.0 WBC Differential Manual diff final Seg Neuts % (Manual) 63 Band Neuts % (Manual) 11 H Lymphocytes % (Manual) 13 Monocytes % (Manual) 13 H Abs Neuts (Manual) 4.2 Differential Comment . Platelet Estimate Normal Platelet Morphology Normal Ovalocytes 1+ H Retic Count 1.3 Absolute Retic 48.1 Sodium 141 Potassium 4.1 Chloride 110 H Carbon Dioxide 21.3 Anion Gap 10 BUN 11 Creatinine 0.88 Estimated GFR 85 L Random Glucose 84 Calcium 7.5 L Magnesium 1.9 Lactate Dehydrogenase 230 Imaging Studies: Impressions Abdomen X-Ray 01/20/18 00:00 CONCLUSION: Dilated small bowel in the left mid abdomen concerning for some degree of obstruction. Abdomen/Pelvis CT 01/21/18 00:00 CONCLUSION: 1. There is abnormal dilated and fluid-filled jejunum measuring up to 5.6 cm with the caliber change at the left lower quadrant. Findings are indicative of some degree of small bowel obstruction. Since no mass is identified at the site , adhesion, stricture, or small occult bowel lesion are considerations. These findings are new since the PET CT from 6 days ago. 2. There is trace free fluid within the pelvis, stable over the past 6 days. Medications: Active Medications Generic Name Dose Route Start Last Admin Trade Name Freq PRN Reason Stop Dose Admin Potassium Chloride/Sodium Chloride 1,000 mls @ 84 mls/hr 01/20/18 17:30 01/20 21:37 Potassium Chlor 20 Meq/Nacl 0.45% Inj IV.CONT Not Given .[id number] [facility] Potassium Chloride/Dextrose/Sod Cl 1,000 mls @ 75 mls/hr 01/20/18 20:00 01/21 09:53 D5w/Ns + Kcl 20 Meq Inj IV.SIG 75 mls/hr .[id number] [facility] Administration Pantoprazole Sodium 40 mg 01/21/18 10:00 01/21/18 09:53 Protonix Inj IV.PUSH 40 mg DAILY [facility] Administration Senna/Docusate Sodium 1 tab 01/20/18 21:00 01/21/18 09:00 Mimi-Colace PO 1 tab BID [facility] Administration Objective Remarks: GENERAL: Well-nourished, well-developed male patient, in no acute distress. SKIN: Warm and dry. HEAD: Normocephalic. EYES: No scleral icterus. No injection or drainage. NECK: Supple, trachea midline. CARDIOVASCULAR: Regular rate and rhythm without murmurs. RESPIRATORY: Breath sounds clear, equal bilaterally. No accessory muscle use. GASTROINTESTINAL: Abdomen soft, non-tender, nondistended. Scar to mid abdomen. EXTREMITIES: No cyanosis, or edema. MUSCULOSKELETAL: Adequate muscle tone. NEUROLOGICAL: No obvious focal deficit. Awake, alert, and oriented x3. PSYCHIATRIC: Appropriate mood and affect; insight and judgment normal. Assessment/Plan - Plan Mr. Reina is a pleasant 72-year-old gentleman who is currently hospitalized with a partial small bowel obstruction. 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 Patient has had approximately 2 weeks of abdominal pain, bloating and intermittent watery bowel movements. He had an outpatient PET scan which revealed a possible small bowel obstruction. This was confirmed with CT. Plan: 1. Mesenteric large B-cell lymphoma, with good response to R CHOP chemotherapy. Patient received Rituxan and CHOP portion was held pending resolution of the partial small bowel obstruction. 2. Partial small bowel obstruction, patient has been evaluated by the surgeon Dr. Brock. He remains n.p.o. at this time. 3. We will consult dietitian, depending on the length of n.p.o. status patient may need TPN. Continue IV fluids for hydration. 4. Continue supportive care. - Attending Statement The exam, history, and the medical decision-making described in the above note were completed with the assistance of the mid-level provider. I reviewed and agree with the findings presented. I attest that I had a [id number] encounter with the patient on the same day, and personally performed and documented my assessment and findings in the medical record. NG tube in place to wall suction. He denies any abdominal pain at present. CT scan of the abdomen showed a small bowel obstruction. Supportive nutrition with TPN ordered. Appreciate dietitian consult. Anticipate starting TPN this evening. Electrolytes will be checked as recommended. Case was discussed with Dr. Rose. Appreciate Dr. Brock management. Chemotherapy on hold until resolution of small bowel obstruction.
--- NOTE | 2018-01-21 13:19 | P.PNGS ---
Subjective Interval history: [place] bloated after CT contrast. + flatus some belching. CT a/p showed significantly dilated proximal small bowel with transition point and some mesenteric inflammation. Physical Exam Vital signs: Vital Signs 01/20/18 16:25 01/20/18 20:00 01/20/18 20:19 Temperature 98.1 F 97.8 F Pulse Rate 80 66 64 Respiratory Rate 18 16 Blood Pressure 137/82 136/83 Pulse Oximetry 98 96 01/21/18 00:00 01/21/18 00:35 01/21/18 04:00 Temperature 97.8 F 97.1 F L Pulse Rate 78 76 70 Respiratory Rate 18 16 Blood Pressure 116/76 119/68 Pulse Oximetry 97 98 01/21/18 07:43 01/21/18 09:05 Temperature 98.5 F Pulse Rate 63 63 Respiratory Rate 18 Blood Pressure 139/76 Pulse Oximetry 96 Intake & Output 01/20/18 01/21/18 01/21/18 18:59 06:59 18:59 Intake Total 0 / 0 630 / 630 Output Total 1800 / 1800 Balance 0 / 0 -1170 / -1170 Weight 113.398 kg 113.5 kg Intake: Oral 0 / 0 630 / 630 Output: Urine 1800 / 1800 Other: Date of Last Bowel Movement 01/19/18 01/19/18 Weight On Admission 113.398 kg Narrative: NAD Abd: soft, moderate distention, nontender Results - Labs 01/21/18 04:00 01/21/18 04:00 Laboratory Results - last 24 hr 01/21/18 01/21/18 01/21/18 04:00 04:00 04:00 WBC 5.7 RBC 3.64 L Hgb 10.4 L Hct 31.6 L MCV 86.9 MCH 28.5 MCHC 32.8 RDW 16.8 Plt Count 355 MPV 7.9 Prelim Diff (Auto) Slide review pending Neut % (Auto) 60.3 Lymph % (Auto) 10.1 [place] % (Auto) 29.0 H Eos % (Auto) 0.2 Baso % (Auto) 0.4 Neut # (Auto) 3.4 Lymph # (Auto) 0.6 L [place] # (Auto) 1.7 H Eos # (Auto) 0.0 Baso # (Auto) 0.0 WBC Differential Manual diff final Seg Neuts % (Manual) 63 Band Neuts % (Manual) 11 H Lymphocytes % (Manual) 13 Monocytes % (Manual) 13 H Abs Neuts (Manual) 4.2 Differential Comment . Platelet Estimate Normal Platelet Morphology Normal Ovalocytes 1+ H Retic Count 1.3 Absolute Retic 48.1 Sodium 141 Potassium 4.1 Chloride 110 H Carbon Dioxide 21.3 Anion Gap 10 BUN 11 Creatinine 0.88 Estimated GFR 85 L Random Glucose 84 Calcium 7.5 L Magnesium 1.9 Lactate Dehydrogenase 230 - Imaging Imaging: ITS Impressions Abdomen X-Ray 01/20/18 00:00 CONCLUSION: Dilated small bowel in the left mid abdomen concerning for some degree of obstruction. Abdomen/Pelvis CT 01/21/18 00:00 CONCLUSION: 1. There is abnormal dilated and fluid-filled jejunum measuring up to 5.6 cm with the caliber change at the left lower quadrant. Findings are indicative of some degree of small bowel obstruction. Since no mass is identified at the site , adhesion, stricture, or small occult bowel lesion are considerations. These findings are new since the PET CT from 6 days ago. 2. There is trace free fluid within the pelvis, stable over the past 6 days. Assessment and Plan - Assessment (1) Small bowel obstruction Code(s): K56.609 - Unspecified intestinal obstruction, unspecified as to partial versus complete obstruction Status: Acute (2) Lymphoma of gastrointestinal tract Code(s): C85.93 - Non-Hodgkin lymphoma, unspecified, intra-abdominal lymph nodes Status: Acute - Plan Small bowel obstruction, high grade. Likely at site of previous mesenteric and small bowel lymphoma. Place ng for decompression. Plan for small bowel series tomorrow am.
--- NOTE | 2018-01-21 13:29 | P.DIET ---
Nutritional Evaluation Type of nutrition evaluation: initial Nutrition consult regarding: TPN/PPN Screening comments: [place] [facility] [place] pt w/SBO, NPO-if prolonged may need TPN Subjective Subjective Comments: Pt NPO. Pt w/decreased oral intake x 10-days to 2-weeks prior to this admission Objective - Diagnosis Partial Small Bowel Obstruction - Objective [place] body weight: 91.8 kg % IBW: 124 Body Weight Used for Calculations: IBW (91.8kg) Energy Needs - Lower Range (kCal/kg): 22 Energy Needs - Upper Range (kCal/kg): 27 Lower Limit kCal/kg (kCals): 2,020 Upper Limit kCal/kg (kCals): 2,479 Lower Limit Protein Factor (Grams per Kg): 1.1 Upper Limit Protein Factor (Grams per Kg): 1.4 Lower Protein Needs (Protein): 101 Upper Protein Needs (Protein): 129 Dietitian Reviewed in Medical Record: Curent medications, Intake & Output, Labs , Medical history Diet Order: NPO Objective Comments: PMH: Mesenteric large B-cell lymphoma/Non-Hodgkin lymphoma, s/p 2-cycles chemotherapy, Anemia, Compression of Sciatic Nerve, GERD Glucose 84 LBM 01/19 Assessment Assessment: Pt is at nutritional risk r/t diagnosis, currently NPO and may need TPN. For PPN , Rec CLINIMIX E 4.25/5 @ 100ml/hr w/20% Lipids @ 10ml/hr to offer 102g Protein and 1296 kcal. PPN provides 100% for protein needs and 64% for kcal needs. For TPN, Rec CLINIMIX E 5/20 @ 85ml/hr w/20% Lipids 31.25ml/hr over 8-hours daily to offer 102g protein and 2295 kcal. Rec a TG in setting of TPN. Labs, electrolytes reviewed. Recommendations: 1. For PPN, Rec CLINIMIX E 4.25/5 @ 100ml/hr w/20% Lipids @ 10ml/hr 2. PPN provides 100% for protein needs and 64% for kcal needs 3. For TPN, Rec CLINIMIX E 5/20 @ 85ml/hr w/20% Lipids 31.25ml/hr over 8-hours daily 4. Rec a TG in setting of TPN Dietitian to Monitor: Lab values, Electrolytes, Glucose level, Intake & Output, Weight change, Diet advancement, Medical course
[2018-01-21] MEDS: Multivitamin Inj 10 ML, Folic Acid Inj 1 MG in AA 5%/D20W - Electrolytes 2,000 ML IV.SIG SCH (21:39)
[2018-01-22 05:46] LABS: Baso % (Auto) 0.3 % (0.0-2.0); Eos % (Auto) 0.5 % (0.0-4.0); Hematocrit 31.4 % (39.0-51.0); Hemoglobin 10.7 gm/dL (13.0-17.0); Lymph # (Auto) 0.6 th/mm3 (1.0-4.8); Lymph % (Auto) 10.5 % (9.0-44.0); Mean Corpuscular HGB Conc 34.2 % (32.0-36.0); Mean Corpuscular Hemoglobin 29.4 pg (27.0-34.0); Mean Corpuscular Volume 85.8 fL (80.0-100.0); Mean Platelet Volume 7.8 fL (7.0-11.0); Mono # (Auto) 2.1 th/mm3 (0.0-0.9); Mono % (Auto) 36.2 % (0.0-8.0); Neut # (Auto) 3.1 th/mm3 (1.8-7.7); Neut % (Auto) 52.5 % (16.0-70.0); Platelet Count 373 th/mm3 (150-450); Red Blood Count 3.66 mil/mm3 (4.50-5.90); Red Cell Distribution Width 16.6 % (11.6-17.2); White Blood Count 5.9 th/mm3 (4.0-11.0)
[2018-01-22 06:10] LABS: Albumin 2.9 g/dL (3.4-5.0); Anion Gap 7 meq/L (5-15); Aspartate Aminotransferase 9 U/L (15-37); Blood Urea Nitrogen 9 mg/dL (7-18); Calcium 8.6 mg/dL (8.5-10.1); Carbon Dioxide 25.8 meq/L (21.0-32.0); Chloride 111 meq/L (98-107); Glomerular Filtration Rate Greater Than 89 mL/min (>89); Glucose,Random 104 mg/dL (74-106); Potassium 3.9 meq/L (3.5-5.1); Sodium 144 meq/L (136-145)
[2018-01-22 06:11] LABS: Alanine Aminotransferase 21 U/L (12-78)
[2018-01-22 06:13] LABS: Alkaline Phosphatase 48 U/L (45-117)
[2018-01-22] MEDS: Senna/Docusate Sodium 8.6/50 MG Tablet PO SCH ×2 (08:28→21:44)
[2018-01-22] MEDS: Pantoprazole Inj 40 MG Vial IV.PUSH SCH (08:29)
--- NOTE | 2018-01-22 08:36 | P.PNONC ---
Subjective Interval history: Patient lying in bed, no acute distress. He is anxious this morning and extremely focused on the intermittent suction of the NG tube. The patient feels as if it is not working because he is not seeing constant fluid movement. NG suction troubleshoot it and appears to be working normally. Clear yellow fluid and tube. Pt states that he is not feeling bloated and is passing gas. He is awaiting GI series today. Objective Vital Signs/Intake & Output: Vital Signs 01/21/18 09:05 01/21/18 16:00 01/21/18 20:00 Temperature 98.5 F 97.6 F 99.0 F Pulse Rate 63 67 80 Respiratory Rate 18 19 Blood Pressure 139/76 151/81 H 132/81 Pulse Oximetry 96 98 95 01/22/18 00:00 01/22/18 05:03 Temperature 98.0 F 97.4 F L Pulse Rate 73 70 Respiratory Rate 16 19 Blood Pressure 118/64 139/90 Pulse Oximetry 95 96 Intake & Output 01/21/18 01/22/18 01/22/18 18:59 06:59 18:59 Intake Total 2250 / 2250 Output Total 3100 / 3100 Balance -850 / -850 Intake: IV 2250 / 2250 Intralipid 20% Inj 250 ML @ 31. 250 / 250 25 mls/hr IV.SIG Q24H SUSY Rx#: [id number] D5W/NS + KCL 20 mEq Inj 1,000 1000 / 1000 ML @ 75 mls/hr IV.SIG .[id number] SUSY Rx#:[id number] Output: Urine 1800 / 1800 Gastric Drainage 1300 / 1300 Left Nare Nasogastric Tube 1300 / 1300 Other: Date of Last Bowel Movement 01/20/18 01/20/18 Result Diagrams: 01/22/18 05:15 01/22/18 05:15 Laboratory Results: Laboratory Results - last 24 hr 01/21/18 01/22/18 01/22/18 04:00 00:08 05:15 WBC 5.9 RBC 3.66 L Hgb 10.7 L Hct 31.4 L MCV 85.8 MCH 29.4 MCHC 34.2 RDW 16.6 Plt Count 373 MPV 7.8 Neut % (Auto) 52.5 Lymph % (Auto) 10.5 Hayes % (Auto) 36.2 H Eos % (Auto) 0.5 Baso % (Auto) 0.3 Neut # (Auto) 3.1 Lymph # (Auto) 0.6 L Hayes # (Auto) 2.1 H Eos # (Auto) 0.0 Baso # (Auto) 0.0 WBC Differential Manual diff final . Seg Neuts % (Manual) 63 Band Neuts % (Manual) 11 H Lymphocytes % (Manual) 13 Monocytes % (Manual) 13 H Abs Neuts (Manual) 4.2 Differential Comment Auto diff final Platelet Estimate Normal Platelet Morphology Normal Ovalocytes 1+ H Sodium Potassium Chloride Carbon Dioxide Anion Gap BUN Creatinine Estimated GFR POC Glucose 159 H Random Glucose Calcium Total Bilirubin AST ALT Alkaline Phosphatase Total Protein Albumin 01/22/18 05:15 WBC RBC Hgb Hct MCV MCH MCHC RDW Plt Count MPV Neut % (Auto) Lymph % (Auto) Hayes % (Auto) Eos % (Auto) Baso % (Auto) Neut # (Auto) Lymph # (Auto) Hayes # (Auto) Eos # (Auto) Baso # (Auto) WBC Differential Seg Neuts % (Manual) Band Neuts % (Manual) Lymphocytes % (Manual) Monocytes % (Manual) Abs Neuts (Manual) Differential Comment Platelet Estimate Platelet Morphology Ovalocytes Sodium 144 Potassium 3.9 Chloride 111 H Carbon Dioxide 25.8 Anion Gap 7 BUN 9 Creatinine 0.84 Estimated GFR Greater than 89 POC Glucose Random Glucose 104 Calcium 8.6 D Total Bilirubin 0.3 AST 9 L ALT 21 Alkaline Phosphatase 48 Total Protein 6.0 L Albumin 2.9 L Medications: Active Medications Generic Name Dose Route Start Last Admin Trade Name Freq PRN Reason Stop Dose Admin Benzocaine/Menthol 1 lozenge 01/21/18 14:00 01/22/18 05:22 Chloraseptic Sore Throat Lozenge BUCCAL 1 lozenge Q2H PRN Administration SORE THROAT Potassium Chloride/Dextrose/Sod Cl 1,000 mls @ 75 mls/hr 01/20/18 20:00 01/21 21:52 D5w/Ns + Kcl 20 Meq Inj IV.SIG 75 mls/hr .[id number] SUSY Administration Multivitamins 10 ml/ Folic 2,010.2 mls @ 85 mls/hr 01/21/18 20:00 01/21/18 21 :39 Acid 1 mg/ Amino Acids/ IV.SIG 85 mls/hr Electrolytes Q24H SUSY Administration Fat Emulsion Intravenous 250 mls @ 31.25 mls/hr 01/21/18 20:00 01/22/18 06:11 Intralipid 20% Inj IV.SIG Infused Q24H SUSY Infusion Pantoprazole Sodium 40 mg 01/21/18 10:00 01/21/18 09:53 Protonix Inj IV.PUSH 40 mg DAILY SUSY Administration Senna/Docusate Sodium 1 tab 01/20/18 21:00 01/22/18 08:28 Mimi-Colace PO Not Given BID SUSY Objective Remarks: GENERAL: Well-nourished, well-developed male patient, in no acute distress. SKIN: Warm and dry. HEAD: Normocephalic.NG tube to rt nare. Intermittent suction. EYES: No scleral icterus. No injection or drainage. NECK: Supple, trachea midline. CARDIOVASCULAR: Regular rate and rhythm without murmurs. RESPIRATORY: Breath sounds clear, equal bilaterally. No accessory muscle use. GASTROINTESTINAL: Abdomen soft, non-tender, nondistended. Scar to mid abdomen. EXTREMITIES: No cyanosis, or edema. MUSCULOSKELETAL: Adequate muscle tone. NEUROLOGICAL: No obvious focal deficit. Awake, alert, and oriented x3. PSYCHIATRIC: Anxious; insight and judgment normal. Assessment/Plan - Plan Mr. Reina is a pleasant 72-year-old gentleman who is currently hospitalized with a partial small bowel obstruction. 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 Patient has had approximately 2 weeks of abdominal pain, bloating and intermittent watery bowel movements. He had an outpatient PET scan which revealed a possible small bowel obstruction. This was confirmed with CT. Plan: 1. Mesenteric large B-cell lymphoma, with good response to R CHOP chemotherapy. Patient received Rituxan and CHOP portion was held pending resolution of the partial small bowel obstruction. 2. Partial small bowel obstruction, patient has been evaluated by the surgeon Dr. Brock. He remains n.p.o. at this time. NG tube to intermittent suction. Awaiting GI series today. 3. Continues on TPN, per multi line claims adjuster recommendation. 4. Continue supportive care. - Attending Statement The exam, history, and the medical decision-making described in the above note were completed with the assistance of the mid-level provider. I reviewed and agree with the findings presented. I attest that I had a [id number] encounter with the patient on the same day, and personally performed and documented my assessment and findings in the medical record. "I sneezed out my NGT" No eager to have NGT replaced, denies any vomiting, BM post contrast. TPN on going. Good urnine out put. Noted earlier anxiety over the intermittent suction. Continue to monitor response to conservative measure, hoping to avoid surgery.
[2018-01-22] MEDS ORDERED: Morphine Sulfate Inj 2 MG/ML Vial IV.PUSH PRN (09:00)
[2018-01-22] MEDS ORDERED: Diatrizoate Meglum/Diatrizoate Sod Liq 120 ML Bottle (for RAD diag) NG/OG ONE (09:15)
--- NOTE | 2018-01-22 11:59 | P.PNGS ---
Subjective Interval history: He did have a bowel movt this am. 1300cc documented output from NGT since placement yesterday. Just finished small bowel series and tube is clamped. Physical Exam Vital signs: Vital Signs 01/21/18 16:00 01/21/18 20:00 01/22/18 00:00 Temperature 97.6 F 99.0 F 98.0 F Pulse Rate 67 80 73 Respiratory Rate 19 16 Blood Pressure 151/81 H 132/81 118/64 Pulse Oximetry 98 95 95 01/22/18 05:03 Temperature 97.4 F L Pulse Rate 70 Respiratory Rate 19 Blood Pressure 139/90 Pulse Oximetry 96 Intake & Output 01/21/18 01/22/18 01/22/18 18:59 06:59 18:59 Intake Total 2250 / 2250 Output Total 3100 / 3100 Balance -850 / -850 Intake: IV 2250 / 2250 Intralipid 20% Inj 250 ML @ 31. 250 / 250 25 mls/hr IV.SIG Q24H SUSY Rx#: [id number] D5W/NS + KCL 20 mEq Inj 1,000 1000 / 1000 ML @ 75 mls/hr IV.SIG .[id number] SUSY Rx#:[id number] Output: Urine 1800 / 1800 Gastric Drainage 1300 / 1300 Left Nare Nasogastric Tube 1300 / 1300 Other: Date of Last Bowel Movement 01/20/18 01/20/18 Narrative: NAD Abd: soft, moderate distention, nontender Results - Labs 01/22/18 05:15 01/22/18 05:15 Laboratory Results - last 24 hr 01/22/18 01/22/18 01/22/18 00:08 05:15 05:15 WBC 5.9 RBC 3.66 L Hgb 10.7 L Hct 31.4 L MCV 85.8 MCH 29.4 MCHC 34.2 RDW 16.6 Plt Count 373 MPV 7.8 Neut % (Auto) 52.5 Lymph % (Auto) 10.5 Zapata % (Auto) 36.2 H Eos % (Auto) 0.5 Baso % (Auto) 0.3 Neut # (Auto) 3.1 Lymph # (Auto) 0.6 L Zapata # (Auto) 2.1 H Eos # (Auto) 0.0 Baso # (Auto) 0.0 WBC Differential . Differential Comment Auto diff final Sodium 144 Potassium 3.9 Chloride 111 H Carbon Dioxide 25.8 Anion Gap 7 BUN 9 Creatinine 0.84 Estimated GFR Greater than 89 POC Glucose 159 H Random Glucose 104 Calcium 8.6 D Total Bilirubin 0.3 AST 9 L ALT 21 Alkaline Phosphatase 48 Total Protein 6.0 L Albumin 2.9 L - Imaging Imaging: ITS Impressions Abdomen X-Ray 01/20/18 00:00 CONCLUSION: Dilated small bowel in the left mid abdomen concerning for some degree of obstruction. Abdomen/Pelvis CT 01/21/18 00:00 CONCLUSION: 1. There is abnormal dilated and fluid-filled jejunum measuring up to 5.6 cm with the caliber change at the left lower quadrant. Findings are indicative of some degree of small bowel obstruction. Since no mass is identified at the site , adhesion, stricture, or small occult bowel lesion are considerations. These findings are new since the PET CT from 6 days ago. 2. There is trace free fluid within the pelvis, stable over the past 6 days. Assessment and Plan - Assessment (1) Small bowel obstruction Code(s): K56.609 - Unspecified intestinal obstruction, unspecified as to partial versus complete obstruction Status: Acute (2) Lymphoma of gastrointestinal tract Code(s): C85.93 - Non-Hodgkin lymphoma, unspecified, intra-abdominal lymph nodes Status: Acute - Plan Small bowel obstruction, high grade partial. Likely at site of previous mesenteric and small bowel lymphoma. Small bowel series report not up yet but appears to confirm high grade partial obstruction. Cont ngt to suction. If having bowel movts may trial clamping and liquids tomorrow. Still not clear if he will require surgical intervention or not.
--- NOTE | 2018-01-22 12:40 | FL ---
EXAM DATE: 01/22/2018 6:00 AM EDT AGE/SEX: 72 years / Male INDICATIONS: Obstruction. CLINICAL DATA: This is the patient's initial encounter. Patient reports that signs and symptoms have been present for 2 days and indicates a pain score of 0/10. MEDICAL/SURGICAL HISTORY: . Lymphoma, small bowel mass, Copd . chemo for small bowel mass COMPARISON: [facility] – [place], CT ABDOMEN & PELVIS W CONTRAST, 01/21/2018. . FLUORO TIME: 0 IMAGE COUNT: 14 CONTRAST: FINDINGS: Preliminary radiograph demonstrates residual contrast in the colon from prior oral contrast administr ation. There is an NGT in the stomach. Several loops of mildly dilated air-filled loops of bowel in t he midabdomen which appear improved from prior CT exam. The stomach is grossly unremarkable. Multiple loops of jejunum that are mildly dilated with relative transition point in the mid abdomen. No intraluminal filling defects are identified. Contrast does extend through this transition point an d is noted in the cecum at 90 minutes. Contrast continues to extend to the colon and extends to the r ectum. CONCLUSION: 1. Findings consistent with partial small bowel obstruction in the distal jejunum, improved from tammy or exam. Electronically signed by: Howard Zhang MD 01/22/2018 12:38 PM EDT
--- NOTE | 2018-01-22 15:51 | P.PNIM ---
Subjective Interval history: Patient reports several liquid BM today continues to endorse abd bloating patient reports he, "sneezed out his NG tube." Physical Exam Vital signs: Vital Signs 01/21/18 16:00 01/21/18 20:00 01/22/18 00:00 Temperature 97.6 F 99.0 F 98.0 F Pulse Rate 67 80 73 Respiratory Rate 19 16 Blood Pressure 151/81 H 132/81 118/64 Pulse Oximetry 98 95 95 01/22/18 05:03 Temperature 97.4 F L Pulse Rate 70 Respiratory Rate 19 Blood Pressure 139/90 Pulse Oximetry 96 Intake & Output 01/21/18 01/22/18 01/22/18 18:59 06:59 18:59 Intake Total 2250 / 2250 Output Total 3100 / 3100 Balance -850 / -850 Intake: IV 2250 / 2250 Intralipid 20% Inj 250 ML @ 31. 250 / 250 25 mls/hr IV.SIG Q24H SUSY Rx#: [id number] D5W/NS + KCL 20 mEq Inj 1,000 1000 / 1000 ML @ 75 mls/hr IV.SIG .[id number] SUSY Rx#:[id number] Output: Urine 1800 / 1800 Gastric Drainage 1300 / 1300 Left Nare Nasogastric Tube 1300 / 1300 Other: Date of Last Bowel Movement 01/20/18 01/20/18 Narrative: GENERAL: This is a well-nourished, well-developed patient, in no apparent distress. CARDIOVASCULAR: Regular rate and rhythm RESPIRATORY: Clear to auscultation. Breath sounds equal bilaterally GASTROINTESTINAL: Abdomen soft, non-tender, mildly distended. Normal active bowel sounds MUSCULOSKELETAL: Extremities without clubbing, cyanosis, or edema. NEURO: Alert & Oriented x4 to person, place, time, situation. Moves all ext x4 Results - Labs CBC & Chem 7: 01/25/18 04:10 01/25/18 04:10 Laboratory Results - last 24 hr 01/22/18 01/22/18 01/22/18 00:08 05:15 05:15 WBC 5.9 RBC 3.66 L Hgb 10.7 L Hct 31.4 L MCV 85.8 MCH 29.4 MCHC 34.2 RDW 16.6 Plt Count 373 MPV 7.8 Neut % (Auto) 52.5 Lymph % (Auto) 10.5 Calloway % (Auto) 36.2 H Eos % (Auto) 0.5 Baso % (Auto) 0.3 Neut # (Auto) 3.1 Lymph # (Auto) 0.6 L Calloway # (Auto) 2.1 H Eos # (Auto) 0.0 Baso # (Auto) 0.0 WBC Differential . Differential Comment Auto diff final Sodium 144 Potassium 3.9 Chloride 111 H Carbon Dioxide 25.8 Anion Gap 7 BUN 9 Creatinine 0.84 Estimated GFR Greater than 89 POC Glucose 159 H Random Glucose 104 Calcium 8.6 D Total Bilirubin 0.3 AST 9 L ALT 21 Alkaline Phosphatase 48 Total Protein 6.0 L Albumin 2.9 L - Imaging Impressions Small Bowel X-Ray 01/22/18 06:00 CONCLUSION: 1. Findings consistent with partial small bowel obstruction in the distal jejunum, improved from prior exam. Assessment and Plan - Assessment (1) Partial small bowel obstruction Code(s): K56.600 - Partial intestinal obstruction, unspecified as to cause Status: Acute Plan: This is a 72-year-old male patient with past medical history which includes mesenteric B cell lymphoma/non-Hodgkin's lymphoma, GI bleed, iron deficiency anemia, GERD. Patient has had a history of GI bleed noted to be secondary to small bowel mass and underwent expiratory laparotomy revealing large mass in the root of mesentery with associated small bowel involvement. Resection was unable to be performed and biopsy revealed large B-cell lymphoma. Patient underwent 2 cycles of chemotherapy with oncologist Dr. Catherine with a good response based on recent PET/CT. Per Dr. Catherine CT PET scan showed resolution of the previous hypermetabolic left lower quadrant mass in the left lateral chest subcutaneous nodule. These were the sites of initial disease. There is, however, interval development of moderate dilatation of small loops of bowel in the right lower quadrant and small hypermetabolic focus either within or adjacent to the dilated loop of bowel without correlating to CT abnormality. Patient now presents to [facility] after evaluation at Dr. Catherine' s office 01/20/2018. Patient reports decreased appetite for the past 2 weeks, decreased p.o. intake and increased abdominal girth with liquid stools and abdominal cramping. Patient symptoms have been worsening over the last 3-5 days. Partial SBO -Abdomen X-Ray reveals:Dilated small bowel in the left mid abdomen concerning for some degree of obstruction. - Abdomen/Pelvis CT reveals: 1. There is abnormal dilated and fluid-filled jejunum measuring up to 5.6 cm with the caliber change at the left lower quadrant. Findings are indicative of some degree of small bowel obstruction. Since no mass is identified at the site, adhesion, stricture, or small occult bowel lesion are considerations. These findings are new since the PET CT from 6 days ago. 2. There is trace free fluid within the pelvis, stable over the past 6 days. - NPO at this time - IVFs 1/2 NS with 20 meq KCL 84ml/hour - Consult to general surgery, patient known to Dr. Brock from previous admissions - 01/21 Dr. Rose discussed that case with Dr. Brock, no surgical plans at this time, continue to monitor - Small Bowel X-Ray 01/22/18 reviewed and reveals: 1. Findings consistent with partial small bowel obstruction in the distal jejunum, improved from prior exam. - per general surgery: Small bowel obstruction, high grade partial. Likely at site of previous mesenteric and small bowel lymphoma. Cont ngt to suction. If having bowel movements may trial clamping and liquids tomorrow. Still not clear if he will require surgical intervention or not. - patient no linger has NG tube in place. Patient reports that he sneezed and NG tube came out - Patient also started in TPN - recheck CMP in AM Mesenteric B cell lymphoma/non-Hodgkin's lymphoma - management per Dr. Catherine - to rituximab-CHOP chemotherapy with resolution of the sites of disease x 2 - He was able to receive his Rituxan chemotherapy 01/20/18. Cytotoxic chemotherapy CHOP was held pending resolution of his partial small-bowel obstruction. Iron deficiency anemia - Will resume ferrous Sulfate PO once patient able to take PO intake GERD - IV Protonix DVT prophylaxis with SCDs - Attending Attestation Patient examined. Assessment and plan formulated with Amanda BUNCH I agree with the above.
[2018-01-22] MEDS: KCL 20 mEq/D5W/NaCl 0.9% Inj 1,000 ML IV.SIG SCH (17:10)
[2018-01-22] MEDS: Multivitamin Inj 10 ML, Folic Acid Inj 1 MG in AA 5%/D20W - Electrolytes 2,000 ML IV.SIG SCH (21:44)
[2018-01-23] MEDS: KCL 20 mEq/D5W/NaCl 0.9% Inj 1,000 ML IV.SIG SCH (02:56)
[2018-01-23 06:11] LABS: Alanine Aminotransferase 16 U/L (12-78); Albumin 2.9 g/dL (3.4-5.0); Anion Gap 11 meq/L (5-15); Aspartate Aminotransferase 10 U/L (15-37); Blood Urea Nitrogen 13 mg/dL (7-18); Calcium 7.8 mg/dL (8.5-10.1); Carbon Dioxide 24.1 meq/L (21.0-32.0); Chloride 111 meq/L (98-107); Glomerular Filtration Rate Greater Than 89 mL/min (>89); Glucose,Random 109 mg/dL (74-106); Potassium 3.8 meq/L (3.5-5.1); Sodium 146 meq/L (136-145)
[2018-01-23 06:13] LABS: Alkaline Phosphatase 48 U/L (45-117); Total Protein 5.8 g/dL (6.4-8.2)
[2018-01-23] MEDS: Pantoprazole Inj 40 MG Vial IV.PUSH SCH (09:13)
[2018-01-23] MEDS: Senna/Docusate Sodium 8.6/50 MG Tablet PO SCH ×2 (09:13→20:23)
--- NOTE | 2018-01-23 09:20 | P.PNGS ---
Subjective Interval history: Had diarrhea after SBFT. No nausea and less bloating. Physical Exam Vital signs: Vital Signs 01/22/18 12:00 01/22/18 16:00 01/22/18 20:00 Temperature 97.5 F L 98.3 F 99 F Pulse Rate 81 79 80 Respiratory Rate 18 16 19 Blood Pressure 157/89 H 143/94 H 132/81 Pulse Oximetry 95 97 95 01/23/18 00:00 01/23/18 04:33 Temperature 98.0 F 98.5 F Pulse Rate 76 71 Respiratory Rate 16 17 Blood Pressure 144/80 H 124/74 Pulse Oximetry 97 97 Intake & Output 01/22/18 01/23/18 01/23/18 18:59 06:59 18:59 Intake Total 1240 / 1240 3240 / 3240 Output Total 300 / 300 501 / 501 Balance 940 / 940 2739 / 2739 Weight 113.2 kg Intake: IV 1000 / 1000 3240 / 3240 Intralipid 20% Inj 250 ML @ 31. 250 / 250 25 mls/hr IV.SIG Q24H SUSY Rx#: [id number] D5W/NS + KCL 20 mEq Inj 1,000 1000 / 1000 990 / 990 ML @ 75 mls/hr IV.SIG .[id number] SUSY Rx#:[id number]-12 Inj 10 ML Folvite Inj 1 2000 / 2000 MG In Clinimix E 5%/D20W Inj 2, 000 ML @ 85 mls/hr IV.SIG Q24H SUSY Rx#:[id number] Oral 240 / 240 Output: Urine 500 / 500 Stool 1 / 1 Gastric Drainage 300 / 300 Left Nare Nasogastric Tube 300 / 300 Other: # Voids 4 Date of Last Bowel Movement 01/22/18 01/22/18 # Bowel Movements 4 Narrative: NAD Abd soft, ntd, less distended Results - Labs 01/22/18 05:15 01/23/18 04:40 Laboratory Results - last 24 hr 01/22/18 01/22/18 01/23/18 17:10 21:50 04:40 Sodium 146 H Potassium 3.8 Chloride 111 H Carbon Dioxide 24.1 Anion Gap 11 BUN 13 Creatinine 0.77 Estimated GFR Greater than 89 POC Glucose 120 H 128 H Random Glucose 109 H Calcium 7.8 L D Total Bilirubin 0.3 AST 10 L ALT 16 Alkaline Phosphatase 48 Total Protein 5.8 L Albumin 2.9 L - Imaging Imaging: ITS Impressions Abdomen X-Ray 01/20/18 00:00 CONCLUSION: Dilated small bowel in the left mid abdomen concerning for some degree of obstruction. Abdomen/Pelvis CT 01/21/18 00:00 CONCLUSION: 1. There is abnormal dilated and fluid-filled jejunum measuring up to 5.6 cm with the caliber change at the left lower quadrant. Findings are indicative of some degree of small bowel obstruction. Since no mass is identified at the site , adhesion, stricture, or small occult bowel lesion are considerations. These findings are new since the PET CT from 6 days ago. 2. There is trace free fluid within the pelvis, stable over the past 6 days. Small Bowel X-Ray 01/22/18 06:00 CONCLUSION: 1. Findings consistent with partial small bowel obstruction in the distal jejunum, improved from prior exam. Assessment and Plan - Assessment (1) Small bowel obstruction Code(s): K56.609 - Unspecified intestinal obstruction, unspecified as to partial versus complete obstruction Status: Acute (2) Lymphoma of gastrointestinal tract Code(s): C85.93 - Non-Hodgkin lymphoma, unspecified, intra-abdominal lymph nodes Status: Acute - Plan NGT sneezed out yesterday. + diarrhea. SBFT showed pSBO, improved. Try fulls with ensure.
--- NOTE | 2018-01-23 15:29 | P.PNONC ---
Subjective Interval history: Afebrile Patient sitting up in chair at bedside watching TV Reports he has just been advanced to a full liquid diet Had early satiety after eating lunch Had 2 small bowel movements and is passing flatus Asking for something for pain for what he reports feels like a lower left back strain Objective Vital Signs/Intake & Output: Vital Signs 01/22/18 16:00 01/22/18 20:00 01/23/18 00:00 Temperature 98.3 F 99 F 98.0 F Pulse Rate 79 80 76 Respiratory Rate 16 19 16 Blood Pressure 143/94 H 132/81 144/80 H Pulse Oximetry 97 95 97 01/23/18 04:33 01/23/18 08:00 Temperature 98.5 F 98.1 F Pulse Rate 71 66 Respiratory Rate 17 18 Blood Pressure 124/74 135/86 Pulse Oximetry 97 97 Intake & Output 01/22/18 01/23/18 01/23/18 18:59 06:59 18:59 Intake Total 1240 / 1240 3240 / 3240 Output Total 300 / 300 501 / 501 Balance 940 / 940 2739 / 2739 Weight 249 lb 9.012 oz Intake: IV 1000 / 1000 3240 / 3240 Intralipid 20% Inj 250 ML @ 31. 250 / 250 25 mls/hr IV.SIG Q24H SUSY Rx#: [id number] D5W/NS + KCL 20 mEq Inj 1,000 1000 / 1000 990 / 990 ML @ 75 mls/hr IV.SIG .[id number] SUSY Rx#:[id number] Inj 10 ML Folvite Inj 1 2000 / 2000 MG In Clinimix E 5%/D20W Inj 2, 000 ML @ 85 mls/hr IV.SIG Q24H SUSY Rx#:[id number] Oral 240 / 240 Output: Urine 500 / 500 Stool 1 / 1 Gastric Drainage 300 / 300 Left Nare Nasogastric Tube 300 / 300 Other: # Voids 4 Date of Last Bowel Movement 01/22/18 01/22/18 01/23/18 # Bowel Movements 4 Result Diagrams: 01/22/18 05:15 01/23/18 04:40 Laboratory Results: Laboratory Results - last 24 hr 01/22/18 01/22/18 01/23/18 17:10 21:50 04:40 Sodium 146 H Potassium 3.8 Chloride 111 H Carbon Dioxide 24.1 Anion Gap 11 BUN 13 Creatinine 0.77 Estimated GFR Greater than 89 POC Glucose 120 H 128 H Random Glucose 109 H Calcium 7.8 L D Total Bilirubin 0.3 AST 10 L ALT 16 Alkaline Phosphatase 48 Total Protein 5.8 L Albumin 2.9 L Medications: Active Medications Generic Name Dose Route Start Last Admin Trade Name Freq PRN Reason Stop Dose Admin Benzocaine/Menthol 1 lozenge 01/21/18 14:00 01/22/18 05:22 Chloraseptic Sore Throat Lozenge BUCCAL 1 lozenge Q2H PRN Administration SORE THROAT Multivitamins 10 ml/ Folic 2,010.2 mls @ 85 mls/hr 01/21/18 20:00 01/22/18 21 :44 Acid 1 mg/ Amino Acids/ IV.SIG 85 mls/hr Electrolytes Q24H SUSY Administration Fat Emulsion Intravenous 250 mls @ 31.25 mls/hr 01/21/18 20:00 01/23/18 06:25 Intralipid 20% Inj IV.SIG Infused Q24H SUSY Infusion Pantoprazole Sodium 40 mg 01/21/18 10:00 01/23/18 09:13 Protonix Inj IV.PUSH 40 mg DAILY SUSY Administration Senna/Docusate Sodium 1 tab 01/20/18 21:00 01/23/18 09:13 Mimi-Colace PO Not Given BID SUSY Objective Remarks: GENERAL: Well-nourished, well-developed male patient, in no acute distress. SKIN: Warm and dry. HEAD: Normocephalic. EYES: No scleral icterus. No injection or drainage. NECK: Supple, trachea midline. CARDIOVASCULAR: Regular rate and rhythm without murmurs. RESPIRATORY: Breath sounds diminished posteriorly. GASTROINTESTINAL: Abdomen mildly protuberant but soft. Scar to mid abdomen. EXTREMITIES: No cyanosis, or edema. MUSCULOSKELETAL: Adequate muscle tone. NEUROLOGICAL: No obvious focal deficit. Awake, alert, and oriented x3. Assessment/Plan - Plan Mr. Reina is a pleasant 72-year-old gentleman who is currently hospitalized with a partial small bowel obstruction. 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 Patient has had approximately 2 weeks of abdominal pain, bloating and intermittent watery bowel movements. He had an outpatient PET scan which revealed a possible small bowel obstruction. This was confirmed with CT. Plan: 1. Consider giving remainder of chemotherapy if it is clear he will not need surgery. 2. Abdominal x-ray shows improvement of small bowel obstruction. 3. Diet advancement per surgery 4. Patient has available as needed morphine for pain; will also add Tylenol for lower rated pain. - Attending Statement The exam, history, and the medical decision-making described in the above note were completed with the assistance of the mid-level provider. I reviewed and agree with the findings presented. I attest that I had a [id number] encounter with the patient on the same day, and personally performed and documented my assessment and findings in the medical record. Tolerating Ensure and full liquid diet. Gets full quickly. c/o back pain, given trial antiinflammatory. Encourage to ambulate in evening. BM and gas passing. Still has abdominal distention. Pending resolution partial SBO anticipate to give last cycle CHOP. If continue to tolerate PO full liquid, taper TPN tomorrow.
[2018-01-23] MEDS ORDERED: Acetaminophen 500 MG Tablet PO PRN (15:31)
--- NOTE | 2018-01-23 17:27 | P.PNIM ---
Subjective Interval history: Follow up: partial small bowel obstruction Reports he has just been advanced to a full liquid diet Had 2 small bowel movements and is passing flatus Physical Exam Vital signs: Vital Signs 01/22/18 20:00 01/23/18 00:00 01/23/18 04:33 Temperature 99 F 98.0 F 98.5 F Pulse Rate 80 76 71 Respiratory Rate 19 16 17 Blood Pressure 132/81 144/80 H 124/74 Pulse Oximetry 95 97 97 01/23/18 08:00 01/23/18 15:00 Temperature 98.1 F 97.6 F Pulse Rate 66 77 Respiratory Rate 18 18 Blood Pressure 135/86 144/55 H Pulse Oximetry 97 99 Intake & Output 01/22/18 01/23/18 01/23/18 18:59 06:59 18:59 Intake Total 1240 / 1240 3240 / 3240 Output Total 300 / 300 501 / 501 Balance 940 / 940 2739 / 2739 Weight 113.2 kg Intake: IV 1000 / 1000 3240 / 3240 Intralipid 20% Inj 250 ML @ 31. 250 / 250 25 mls/hr IV.SIG Q24H [facility] Rx#: [id number] D5W/NS + KCL 20 mEq Inj 1,000 1000 / 1000 990 / 990 ML @ 75 mls/hr IV.SIG .[id number] [facility] Rx#:[id number] MVI-12 Inj 10 ML Folvite Inj 1 2000 / 2000 MG In Clinimix E 5%/D20W Inj 2, 000 ML @ 85 mls/hr IV.SIG Q24H [facility] Rx#:[id number] Oral 240 / 240 Output: Urine 500 / 500 Stool 1 / 1 Gastric Drainage 300 / 300 Left Nare Nasogastric Tube 300 / 300 Other: # Voids 4 Date of Last Bowel Movement 01/22/18 01/22/18 01/23/18 # Bowel Movements 4 Narrative: GENERAL: This is a well-nourished, well-developed patient, in no apparent distress. CARDIOVASCULAR: Regular rate and rhythm RESPIRATORY: Clear to auscultation. Breath sounds equal bilaterally GASTROINTESTINAL: Abdomen soft, non-tender, less distended than yesterday. Normal active bowel sounds MUSCULOSKELETAL: Extremities without clubbing, cyanosis, or edema. NEURO: Alert & Oriented x4 to person, place, time, situation. Moves all ext x4 Results - Labs CBC & Chem 7: 01/25/18 04:10 01/25/18 04:10 Laboratory Results - last 24 hr 01/22/18 01/23/18 01/23/18 21:50 04:40 15:56 Sodium 146 H Potassium 3.8 Chloride 111 H Carbon Dioxide 24.1 Anion Gap 11 BUN 13 Creatinine 0.77 Estimated GFR Greater than 89 POC Glucose 128 H 113 H Random Glucose 109 H Calcium 7.8 L D Total Bilirubin 0.3 AST 10 L ALT 16 Alkaline Phosphatase 48 Total Protein 5.8 L Albumin 2.9 L Assessment and Plan - Assessment (1) Partial small bowel obstruction Code(s): K56.600 - Partial intestinal obstruction, unspecified as to cause Status: Acute Plan: This is a 72-year-old male patient with past medical history which includes mesenteric B cell lymphoma/non-Hodgkin's lymphoma, GI bleed, iron deficiency anemia, GERD. Patient has had a history of GI bleed noted to be secondary to small bowel mass and underwent expiratory laparotomy revealing large mass in the root of mesentery with associated small bowel involvement. Resection was unable to be performed and biopsy revealed large B-cell lymphoma. Patient underwent 2 cycles of chemotherapy with oncologist Dr. Catherine with a good response based on recent PET/CT. Per Dr. Catherine CT PET scan showed resolution of the previous hypermetabolic left lower quadrant mass in the left lateral chest subcutaneous nodule. These were the sites of initial disease. There is, however, interval development of moderate dilatation of small loops of bowel in the right lower quadrant and small hypermetabolic focus either within or adjacent to the dilated loop of bowel without correlating to CT abnormality. Patient now presents to [facility] after evaluation at Dr. Catherine' s office 01/20/2018. Patient reports decreased appetite for the past 2 weeks, decreased p.o. intake and increased abdominal girth with liquid stools and abdominal cramping. Patient symptoms have been worsening over the last 3-5 days. Partial SBO -Abdomen X-Ray reveals:Dilated small bowel in the left mid abdomen concerning for some degree of obstruction. - Abdomen/Pelvis CT reveals: 1. There is abnormal dilated and fluid-filled jejunum measuring up to 5.6 cm with the caliber change at the left lower quadrant. Findings are indicative of some degree of small bowel obstruction. Since no mass is identified at the site, adhesion, stricture, or small occult bowel lesion are considerations. These findings are new since the PET CT from 6 days ago. 2. There is trace free fluid within the pelvis, stable over the past 6 days. - NPO at this time - IVFs 1/2 NS with 20 meq KCL 84ml/hour - Consult to general surgery, patient known to Dr. Brock from previous admissions - 01/21 Dr. Rose discussed that case with Dr. Brock, no surgical plans at this time, continue to monitor - Small Bowel X-Ray 01/22/18 reviewed and reveals: 1. Findings consistent with partial small bowel obstruction in the distal jejunum, improved from prior exam. - per general surgery: Small bowel obstruction, high grade partial. Likely at site of previous mesenteric and small bowel lymphoma. Cont ngt to suction. If having bowel movements may trial clamping and liquids tomorrow. Still not clear if he will require surgical intervention or not. - patient no longer has NG tube in place. Patient reports that he sneezed and NG tube came out - Patient also started in TPN - patient advanced to Full liquid diet per general surgery - tolerating - DC IVF Mesenteric B cell lymphoma/non-Hodgkin's lymphoma - management per Dr. Catherine - to rituximab-CHOP chemotherapy with resolution of the sites of disease x 2 - He was able to receive his Rituxan chemotherapy 01/20/18. Cytotoxic chemotherapy CHOP was held pending resolution of his partial small-bowel obstruction. Iron deficiency anemia - Will resume ferrous Sulfate PO once patient able to take PO intake GERD - IV Protonix DVT prophylaxis with SCDs - Attending Attestation Patient examined. Assessment and plan formulated with Amanda BUNCH I agree with the above.
[2018-01-23] MEDS: Ketorolac Inj 30 MG/ML (IVP) Vial IV.PUSH PRN (20:33)
[2018-01-24] MEDS: Senna/Docusate Sodium 8.6/50 MG Tablet PO SCH ×3 (09:58→20:41)
[2018-01-24] MEDS: Ketorolac Inj 30 MG/ML (IVP) Vial IV.PUSH PRN (10:45)
[2018-01-24] MEDS: Pantoprazole Inj 40 MG Vial IV.PUSH SCH (10:45)
--- NOTE | 2018-01-24 10:48 | P.PNONC ---
Subjective Interval history: Patient sitting up in bed. He reports he ate 100% of his breakfast, which included oatmeal, yogurt etc. He denies any abdominal pain. He states he does feel bloated and is passing a lot of flatulence. He reports one small formed bowel movement this a.m. No longer on TPN and no longer has NG tube. Objective Vital Signs/Intake & Output: Vital Signs 01/23/18 15:00 01/23/18 20:00 01/24/18 00:00 Temperature 97.6 F 97.8 F 97.8 F Pulse Rate 77 78 68 Respiratory Rate 18 16 16 Blood Pressure 144/55 H 124/78 123/78 Pulse Oximetry 99 98 98 01/24/18 04:00 Temperature 97.4 F L Pulse Rate 62 Respiratory Rate 16 Blood Pressure 151/84 H Pulse Oximetry 98 Intake & Output 01/23/18 01/24/18 01/24/18 18:59 06:59 18:59 Intake Total 1892 / 1892 2710.2 / 2710.2 Output Total 530 / 530 1225 / 1225 Balance 1362 / 1362 1485.2 / 1485.2 Weight 113 kg Intake: IV 2009.2009.2 MVI-12 Inj 10 ML Folvite Inj 1 2009.2 MG In Clinimix E 5%/D20W Inj 2, 000 ML @ 85 mls/hr IV.SIG Q24H [facility] Rx#:[id number] Oral 1892 / 1892 700 / 700 Output: Urine 530 / 530 1225 / 1225 Other: Date of Last Bowel Movement 01/23/18 01/23/18 # Bowel Movements 2 Result Diagrams: 01/22/18 05:15 01/23/18 04:40 Laboratory Results: Laboratory Results - last 24 hr 01/23/18 01/23/18 01/23/18 15:56 20:23 21:23 POC Glucose 113 H 129 H 95 01/23/18 22:29 POC Glucose 124 H Medications: Active Medications Generic Name Dose Route Start Last Admin Trade Name Freq PRN Reason Stop Dose Admin Benzocaine/Menthol 1 lozenge 01/21/18 14:00 01/22/18 05:22 Chloraseptic Sore Throat Lozenge BUCCAL 1 lozenge Q2H PRN Administration SORE THROAT Ketorolac Tromethamine 15 mg 01/23/18 17:51 01/23/18 20:33 Toradol Inj IV.PUSH 01/24/18 17:50 15 mg Q12HR PRN Administration BACK PAIN Pantoprazole Sodium 40 mg 01/21/18 10:00 01/23/18 09:13 Protonix Inj IV.PUSH 40 mg DAILY [facility] Administration Senna/Docusate Sodium 1 tab 01/20/18 21:00 01/24/18 09:58 Mimi-Colace PO Not Given BID S[facility] Objective Remarks: GENERAL: Well-nourished, well-developed male patient, in no acute distress. SKIN: Warm and dry. HEAD: Normocephalic. EYES: No scleral icterus. No injection or drainage. NECK: Supple, trachea midline. CARDIOVASCULAR: Regular rate and rhythm without murmurs. RESPIRATORY: Breath sounds clear, equal bilaterally. No accessory muscle use. GASTROINTESTINAL: Abdomen soft, non-tender, nondistended. Scar to mid abdomen. EXTREMITIES: No cyanosis, or edema. MUSCULOSKELETAL: Adequate muscle tone. NEUROLOGICAL: No obvious focal deficit. Awake, alert, and oriented x3. PSYCHIATRIC: Normal mood; insight and judgment normal. Assessment/Plan - Plan Mr. Reina is a pleasant 72-year-old gentleman who is currently hospitalized with a partial small bowel obstruction. 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 Patient has had approximately 2 weeks of abdominal pain, bloating and intermittent watery bowel movements. He had an outpatient PET scan which revealed a possible small bowel obstruction. This was confirmed with CT. Plan: 1. Patient will likely complete chemotherapy as an outpatient, once recovered from acute illness. 2. Abdominal x-ray shows improvement of small bowel obstruction. 3. Diet advancement per surgery, tolerating regular diet. 4. Continue supportive care. - Attending Statement The exam, history, and the medical decision-making described in the above note were completed with the assistance of the mid-level provider. I reviewed and agree with the findings presented. I attest that I had a [id number] encounter with the patient on the same day, and personally performed and documented my assessment and findings in the medical record. Patient is feeling better. He tolerated full liquid diet. He has small amount of stool. His blood count stable. He will receive CHOP chemotherapy once he is stronger.
--- NOTE | 2018-01-24 13:19 | P.PNGS ---
Subjective Interval history: Tolerating fulls and ensure well with some bloating. Passing gas and had small solid bm. Physical Exam Vital signs: Vital Signs 01/23/18 15:00 01/23/18 20:00 01/24/18 00:00 Temperature 97.6 F 97.8 F 97.8 F Pulse Rate 77 78 68 Respiratory Rate 18 16 16 Blood Pressure 144/55 H 124/78 123/78 Pulse Oximetry 99 98 98 01/24/18 04:00 01/24/18 08:00 Temperature 97.4 F L 97.4 F L Pulse Rate 62 Respiratory Rate 16 18 Blood Pressure 151/84 H 144/72 H Pulse Oximetry 98 97 Intake & Output 01/23/18 01/24/18 01/24/18 18:59 06:59 18:59 Intake Total 1892 / 1892 2710.2 / 2710.2 Output Total 530 / 530 1225 / 1225 Balance 1362 / 1362 1485.2 / 1485.2 Weight 113 kg Intake: IV 2009.2009.2 MVI-12 Inj 10 ML Folvite Inj 1 2009.2 MG In Clinimix E 5%/D20W Inj 2, 000 ML @ 85 mls/hr IV.SIG Q24H [facility] Rx#:[id number] Oral 1892 / 1892 700 / 700 Output: Urine 530 / 530 1225 / 1225 Other: Date of Last Bowel Movement 01/23/18 01/23/18 # Bowel Movements 2 Narrative: NAD Abd soft, mild distention Results - Labs 01/22/18 05:15 01/23/18 04:40 Laboratory Results - last 24 hr 01/23/18 01/23/18 01/23/18 15:56 20:23 21:23 POC Glucose 113 H 129 H 95 01/23/18 22:29 POC Glucose 124 H - Imaging Imaging: ITS Impressions Abdomen X-Ray 01/20/18 00:00 CONCLUSION: Dilated small bowel in the left mid abdomen concerning for some degree of obstruction. Abdomen/Pelvis CT 01/21/18 00:00 CONCLUSION: 1. There is abnormal dilated and fluid-filled jejunum measuring up to 5.6 cm with the caliber change at the left lower quadrant. Findings are indicative of some degree of small bowel obstruction. Since no mass is identified at the site , adhesion, stricture, or small occult bowel lesion are considerations. These findings are new since the PET CT from 6 days ago. 2. There is trace free fluid within the pelvis, stable over the past 6 days. Small Bowel X-Ray 01/22/18 06:00 CONCLUSION: 1. Findings consistent with partial small bowel obstruction in the distal jejunum, improved from prior exam. Assessment and Plan - Assessment (1) Small bowel obstruction Code(s): K56.609 - Unspecified intestinal obstruction, unspecified as to partial versus complete obstruction Status: Acute (2) Lymphoma of gastrointestinal tract Code(s): C85.93 - Non-Hodgkin lymphoma, unspecified, intra-abdominal lymph nodes Status: Acute - Plan Doing well on fulls. Continue fulls and ensure. Ok for chemotherapy from my standpoint. It does not appear he will need surgery at this time. If discharged soon, continue fulls and slowly soft diet at home. Since he lives in [place] , he wants to f/u with me only as needed.
--- NOTE | 2018-01-24 18:25 | P.PNIM ---
Subjective Interval history: Follow up: partial small bowel obstruction Patient on full liquid diet with ensure having some increase in distention today , decrease PO intake due to concern that distention will increase Patient reports formed BM today with flatus Physical Exam Vital signs: Vital Signs 01/23/18 20:00 01/24/18 00:00 01/24/18 04:00 Temperature 97.8 F 97.8 F 97.4 F L Pulse Rate 78 68 62 Respiratory Rate 16 16 16 Blood Pressure 124/78 123/78 151/84 H Pulse Oximetry 98 98 98 01/24/18 08:00 Temperature 97.4 F L Pulse Rate Respiratory Rate 18 Blood Pressure 144/72 H Pulse Oximetry 97 Intake & Output 01/23/18 01/24/18 01/24/18 18:59 06:59 18:59 Intake Total 1892 / 1892 2710.2 / 2710.2 Output Total 530 / 530 1225 / 1225 Balance 1362 / 1362 1485.2 / 1485.2 Weight 113 kg Intake: IV 2009.2009.2 MVI-12 Inj 10 ML Folvite Inj 1 2009.2 MG In Clinimix E 5%/D20W Inj 2, 000 ML @ 85 mls/hr IV.SIG Q24H [facility] Rx#:[id number] Oral 1892 / 1892 700 / 700 Output: Urine 530 / 530 1225 / 1225 Other: Date of Last Bowel Movement 01/23/18 01/23/18 # Bowel Movements 2 Narrative: GENERAL: This is a well-nourished, well-developed patient, in no apparent distress. CARDIOVASCULAR: Regular rate and rhythm RESPIRATORY: Clear to auscultation. Breath sounds equal bilaterally GASTROINTESTINAL: Abdomen soft, non-tender, distended. distant high pitched bowel sounds MUSCULOSKELETAL: Extremities without clubbing, cyanosis, or edema. NEURO: Alert & Oriented x4 to person, place, time, situation. Moves all ext x4 Results - Labs CBC & Chem 7: 01/25/18 04:10 01/25/18 04:10 Laboratory Results - last 24 hr 01/23/18 01/23/18 01/23/18 20:23 21:23 22:29 POC Glucose 129 H 95 124 H Assessment and Plan - Assessment (1) Partial small bowel obstruction Code(s): K56.600 - Partial intestinal obstruction, unspecified as to cause Status: Acute Plan: This is a 72-year-old male patient with past medical history which includes mesenteric B cell lymphoma/non-Hodgkin's lymphoma, GI bleed, iron deficiency anemia, GERD. Patient has had a history of GI bleed noted to be secondary to small bowel mass and underwent expiratory laparotomy revealing large mass in the root of mesentery with associated small bowel involvement. Resection was unable to be performed and biopsy revealed large B-cell lymphoma. Patient underwent 2 cycles of chemotherapy with oncologist Dr. Catherine with a good response based on recent PET/CT. Per Dr. Catherine CT PET scan showed resolution of the previous hypermetabolic left lower quadrant mass in the left lateral chest subcutaneous nodule. These were the sites of initial disease. There is, however, interval development of moderate dilatation of small loops of bowel in the right lower quadrant and small hypermetabolic focus either within or adjacent to the dilated loop of bowel without correlating to CT abnormality. Patient now presents to [facility] after evaluation at Dr. Catherine' s office 01/20/2018. Patient reports decreased appetite for the past 2 weeks, decreased p.o. intake and increased abdominal girth with liquid stools and abdominal cramping. Patient symptoms have been worsening over the last 3-5 days. Partial SBO -Abdomen X-Ray reveals:Dilated small bowel in the left mid abdomen concerning for some degree of obstruction. - Abdomen/Pelvis CT reveals: 1. There is abnormal dilated and fluid-filled jejunum measuring up to 5.6 cm with the caliber change at the left lower quadrant. Findings are indicative of some degree of small bowel obstruction. Since no mass is identified at the site, adhesion, stricture, or small occult bowel lesion are considerations. These findings are new since the PET CT from 6 days ago. 2. There is trace free fluid within the pelvis, stable over the past 6 days. - Consult to general surgery, patient known to Dr. Brock from previous admissions - 01/21 Dr. Rose discussed that case with Dr. Brock, no surgical plans at this time, continue to monitor - Small Bowel X-Ray 01/22/18 reviewed and reveals: 1. Findings consistent with partial small bowel obstruction in the distal jejunum, improved from prior exam. - DC full liquid diet NPO at this time - resume IVFs 1/2 NS 84ml/hour - KUB now and in AM - CBC and BMP in AM - will continue to monitor may need to reinsert NG tube Mesenteric B cell lymphoma/non-Hodgkin's lymphoma - management per Dr. Catherine - to rituximab-CHOP chemotherapy with resolution of the sites of disease x 2 - He was able to receive his Rituxan chemotherapy 01/20/18. Cytotoxic chemotherapy CHOP was held pending resolution of his partial small-bowel obstruction. Iron deficiency anemia - Will resume ferrous Sulfate PO once patient able to take PO intake GERD - IV Protonix DVT prophylaxis with SCDs - Attending Attestation Patient examined. Assessment and plan formulated with Amanda BUNCH I agree with the above.
[2018-01-24] MEDS ORDERED: Ketorolac Inj 30 MG/ML (IVP) Vial IV.PUSH PRN (19:59)
[2018-01-24] MEDS: Sodium Chloride 0.45 % Inj 1,000 ML IV.CONT SCH (20:43)
[2018-01-25 05:33] LABS: Baso % (Auto) 0.3 % (0.0-2.0); Eos # (Auto) 0.1 th/mm3 (0.0-0.4); Hematocrit 31.2 % (39.0-51.0); Hemoglobin 10.6 gm/dL (13.0-17.0); Lymph # (Auto) 0.5 th/mm3 (1.0-4.8); Lymph % (Auto) 8.4 % (9.0-44.0); Mean Corpuscular HGB Conc 34.1 % (32.0-36.0); Mean Corpuscular Hemoglobin 28.9 pg (27.0-34.0); Mean Corpuscular Volume 84.8 fL (80.0-100.0); Mean Platelet Volume 8.7 fL (7.0-11.0); Mono # (Auto) 1.9 th/mm3 (0.0-0.9); Mono % (Auto) 30.3 % (0.0-8.0); Neut # (Auto) 3.7 th/mm3 (1.8-7.7); Platelet Count 301 th/mm3 (150-450); Red Blood Count 3.67 mil/mm3 (4.50-5.90); Red Cell Distribution Width 16.6 % (11.6-17.2); White Blood Count 6.2 th/mm3 (4.0-11.0)
[2018-01-25 06:08] LABS: Alanine Aminotransferase 40 U/L (12-78); Albumin 2.9 g/dL (3.4-5.0); Alkaline Phosphatase 58 U/L (45-117); Anion Gap 8 meq/L (5-15); Aspartate Aminotransferase 37 U/L (15-37); Blood Urea Nitrogen 10 mg/dL (7-18); Calcium 8.5 mg/dL (8.5-10.1); Carbon Dioxide 25.6 meq/L (21.0-32.0); Chloride 108 meq/L (98-107); Glomerular Filtration Rate 83 mL/min (>89); Glucose,Random 86 mg/dL (74-106); Potassium 4.2 meq/L (3.5-5.1); Sodium 142 meq/L (136-145); Total Protein 5.9 g/dL (6.4-8.2)
--- NOTE | 2018-01-25 06:45 | XR ---
EXAM DATE: 01/25/2018 6:00 AM EDT AGE/SEX: 72 years / Male INDICATIONS: Abdominal distention. CLINICAL DATA: This is the patient's subsequent encounter. Patient reports that signs and symptoms h ave been present for 4 - 6 days and indicates a pain score of 0/10. MEDICAL/SURGICAL HISTORY: Lymphoma. Chronic obstructive pulmonary disease. None. COMPARISON: C, ABDOMEN 1V KUB, 01/20/2018. . FINDINGS: Gaseous distention of bowel remain similar to prior exam. There is some gas in nondistended colon as well. No free air. Findings are relatively stable since prior exam. CONCLUSION: Relatively stable gaseous distention of small bowel since January 20. Electronically signed by: Waldo Artis MD 01/25/2018 6:44 AM EDT
--- NOTE | 2018-01-25 08:41 | P.PNONC ---
Subjective Interval history: Patient sleeping on approach, awakens easily to voice. He states he was changed to n.p.o. status yesterday due to abdominal distention. He continues to have gas and has had another solid bowel movement this a.m. Reporting no abdominal pain since BM this morning. Objective Vital Signs/Intake & Output: Vital Signs 01/24/18 16:00 01/24/18 20:00 01/25/18 00:00 Temperature 98.5 F 98.1 F 98.5 F Pulse Rate 87 78 79 Respiratory Rate 18 18 16 Blood Pressure 152/92 H 151/89 H 137/74 Pulse Oximetry 98 96 97 01/25/18 04:00 Temperature 98.0 F Pulse Rate 71 Respiratory Rate 16 Blood Pressure 127/71 Pulse Oximetry 96 Intake & Output 01/24/18 01/25/18 01/25/18 18:59 06:59 18:59 Intake Total 120 / 120 Output Total 1450 / 1450 Balance -1330 / -1330 Weight 111.5 kg Intake: Oral 120 / 120 Output: Urine 1450 / 1450 Other: Date of Last Bowel Movement 01/24/18 Result Diagrams: 01/25/18 04:10 01/25/18 04:10 Laboratory Results: Laboratory Results - last 24 hr 01/25/18 01/25/18 04:10 04:10 WBC 6.2 RBC 3.67 L Hgb 10.6 L Hct 31.2 L MCV 84.8 MCH 28.9 MCHC 34.1 RDW 16.6 Plt Count 301 MPV 8.7 Neut % (Auto) 60.0 Lymph % (Auto) 8.4 L [place] % (Auto) 30.3 H Eos % (Auto) 1.0 Baso % (Auto) 0.3 Neut # (Auto) 3.7 Lymph # (Auto) 0.5 L [place] # (Auto) 1.9 H Eos # (Auto) 0.1 Baso # (Auto) 0.0 WBC Differential . Differential Comment Auto diff final Sodium 142 Potassium 4.2 Chloride 108 H Carbon Dioxide 25.6 Anion Gap 8 BUN 10 Creatinine 0.90 Estimated GFR 83 L Random Glucose 86 Calcium 8.5 Total Bilirubin 0.4 AST 37 ALT 40 Alkaline Phosphatase 58 Total Protein 5.9 L Albumin 2.9 L Imaging Studies: Impressions Abdomen X-Ray 01/25/18 06:00 CONCLUSION: Relatively stable gaseous distention of small bowel since January 20. Medications: Active Medications Generic Name Dose Route Start Last Admin Trade Name Freq PRN Reason Stop Dose Admin Benzocaine/Menthol 1 lozenge 01/21/18 14:00 01/22/18 05:22 Chloraseptic Sore Throat Lozenge BUCCAL 1 lozenge Q2H PRN Administration SORE THROAT Sodium Chloride 1,000 mls @ 84 mls/hr 01/24/18 19:55 01/24/18 20:43 1/2 Normal Saline Inj IV.CONT 84 mls/hr .[id number] [facility] Administration Pantoprazole Sodium 40 mg 01/21/18 10:00 01/24/18 10:45 Protonix Inj IV.PUSH 40 mg DAILY [facility] Administration Senna/Docusate Sodium 1 tab 01/20/18 21:00 01/24/18 20:41 Miim-Colace PO 1 tab BID [facility] Administration Objective Remarks: GENERAL: Well-nourished, well-developed male patient, in no acute distress. SKIN: Warm and dry. HEAD: Normocephalic. EYES: No scleral icterus. No injection or drainage. NECK: Supple, trachea midline. CARDIOVASCULAR: Regular rate and rhythm without murmurs. RESPIRATORY: Breath sounds clear, equal bilaterally. No accessory muscle use. GASTROINTESTINAL: Abdomen soft, non-tender, nondistended. Scar to mid abdomen. EXTREMITIES: No cyanosis, or edema. MUSCULOSKELETAL: Adequate muscle tone. NEUROLOGICAL: No obvious focal deficit. Awake, alert, and oriented x3. PSYCHIATRIC: Normal mood; insight and judgment normal. Assessment/Plan - Plan Mr. Reina is a pleasant 72-year-old gentleman who is currently hospitalized with a partial small bowel obstruction. 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 Patient has had approximately 2 weeks of abdominal pain, bloating and intermittent watery bowel movements. He had an outpatient PET scan which revealed a possible small bowel obstruction. This was confirmed with CT. Plan: 1. Patient will likely complete chemotherapy as an outpatient, once recovered from acute illness. 2. Repeat abdominal x-ray showed relatively stable gaseous distention of small bowel since 01/20/2018. Management per GI. 3. Patient currently n.p.o. related to abdominal distention yesterday. 4. Continue supportive care. - Attending Statement The exam, history, and the medical decision-making described in the above note were completed with the assistance of the mid-level provider. I reviewed and agree with the findings presented. I attest that I had a [id number] encounter with the patient on the same day, and personally performed and documented my assessment and findings in the medical record. Patient episode of abdominal distention yesterday evening. X-rays showed stable finding. He is passing gas and has small bowel movement this morning. He is feeling better. Discussed with Dr. Rose. Will advance his diet. Continue to hold chemotherapy.
[2018-01-25] MEDS: Pantoprazole Inj 40 MG Vial IV.PUSH SCH (10:09)
[2018-01-25] MEDS: Sodium Chloride 0.45 % Inj 1,000 ML IV.CONT SCH ×2 (10:11→20:24)
--- NOTE | 2018-01-25 11:46 | P.PNIM ---
Subjective Interval history: Follow up: partial small bowel obstruction Patient reports formed BM today with flatus. Patient also reports that he feels less bloating today Physical Exam Vital signs: Vital Signs 01/24/18 16:00 01/24/18 20:00 01/25/18 00:00 Temperature 98.5 F 98.1 F 98.5 F Pulse Rate 87 78 79 Respiratory Rate 18 18 16 Blood Pressure 152/92 H 151/89 H 137/74 Pulse Oximetry 98 96 97 01/25/18 04:00 01/25/18 08:45 Temperature 98.0 F Pulse Rate 71 73 Respiratory Rate 16 16 Blood Pressure 127/71 136/72 Pulse Oximetry 96 99 Intake & Output 01/24/18 01/25/18 01/25/18 18:59 06:59 18:59 Intake Total 120 / 120 1000 / 1000 Output Total 1450 / 1450 Balance -1330 / -1330 1000 / 1000 Weight 111.5 kg Intake: IV 1000 / 1000 1/2 Normal Saline Inj 1,000 ML 1000 / 1000 @ 84 mls/hr IV.CONT .[id number] [facility] Rx#:[id number] Oral 120 / 120 Output: Urine 1450 / 1450 Other: Date of Last Bowel Movement 01/24/18 01/25/18 Narrative: GENERAL: This is a well-nourished, well-developed patient, in no apparent distress. CARDIOVASCULAR: Regular rate and rhythm RESPIRATORY: Clear to auscultation. Breath sounds equal bilaterally GASTROINTESTINAL: Abdomen soft, non-tender, non-distended. Normoactive bowel sounds MUSCULOSKELETAL: Extremities without clubbing, cyanosis, or edema. NEURO: Alert & Oriented x4 to person, place, time, situation. Moves all ext x4 Results - Labs CBC & Chem 7: 01/25/18 04:10 01/25/18 04:10 Laboratory Results - last 24 hr 01/25/18 01/25/18 04:10 04:10 WBC 6.2 RBC 3.67 L Hgb 10.6 L Hct 31.2 L MCV 84.8 MCH 28.9 MCHC 34.1 RDW 16.6 Plt Count 301 MPV 8.7 Neut % (Auto) 60.0 Lymph % (Auto) 8.4 L Fallon % (Auto) 30.3 H Eos % (Auto) 1.0 Baso % (Auto) 0.3 Neut # (Auto) 3.7 Lymph # (Auto) 0.5 L Fallon # (Auto) 1.9 H Eos # (Auto) 0.1 Baso # (Auto) 0.0 WBC Differential . Differential Comment Auto diff final Sodium 142 Potassium 4.2 Chloride 108 H Carbon Dioxide 25.6 Anion Gap 8 BUN 10 Creatinine 0.90 Estimated GFR 83 L Random Glucose 86 Calcium 8.5 Total Bilirubin 0.4 AST 37 ALT 40 Alkaline Phosphatase 58 Total Protein 5.9 L Albumin 2.9 L - Imaging Impressions Abdomen X-Ray 01/25/18 06:00 CONCLUSION: Relatively stable gaseous distention of small bowel since January 20. Assessment and Plan - Assessment (1) Partial small bowel obstruction Code(s): K56.600 - Partial intestinal obstruction, unspecified as to cause Status: Acute Plan: This is a 72-year-old male patient with past medical history which includes mesenteric B cell lymphoma/non-Hodgkin's lymphoma, GI bleed, iron deficiency anemia, GERD. Patient has had a history of GI bleed noted to be secondary to small bowel mass and underwent expiratory laparotomy revealing large mass in the root of mesentery with associated small bowel involvement. Resection was unable to be performed and biopsy revealed large B-cell lymphoma. Patient underwent 2 cycles of chemotherapy with oncologist Dr. Catherine with a good response based on recent PET/CT. Per Dr. Catherine CT PET scan showed resolution of the previous hypermetabolic left lower quadrant mass in the left lateral chest subcutaneous nodule. These were the sites of initial disease. There is, however, interval development of moderate dilatation of small loops of bowel in the right lower quadrant and small hypermetabolic focus either within or adjacent to the dilated loop of bowel without correlating to CT abnormality. Patient now presents to [facility] after evaluation at Dr. Catherine' s office 01/20/2018. Patient reports decreased appetite for the past 2 weeks, decreased p.o. intake and increased abdominal girth with liquid stools and abdominal cramping. Patient symptoms have been worsening over the last 3-5 days. Partial SBO -Abdomen X-Ray reveals:Dilated small bowel in the left mid abdomen concerning for some degree of obstruction. - Abdomen/Pelvis CT reveals: 1. There is abnormal dilated and fluid-filled jejunum measuring up to 5.6 cm with the caliber change at the left lower quadrant. Findings are indicative of some degree of small bowel obstruction. Since no mass is identified at the site, adhesion, stricture, or small occult bowel lesion are considerations. These findings are new since the PET CT from 6 days ago. 2. There is trace free fluid within the pelvis, stable over the past 6 days. - Consult to general surgery, patient known to Dr. Brock from previous admissions - 01/21 Dr. Rose discussed that case with Dr. Brock, no surgical plans at this time, continue to monitor - Small Bowel X-Ray 01/22/18 reviewed and reveals: 1. Findings consistent with partial small bowel obstruction in the distal jejunum, improved from prior exam. - DC full liquid diet NPO at this time - resume IVFs / NS 84ml/hour - KUB 01/25/18 Relatively stable gaseous distention of small bowel since January 20. - trial of clear liquid diet Mesenteric B cell lymphoma/non-Hodgkin's lymphoma - management per Dr. Catherine - to rituximab-CHOP chemotherapy with resolution of the sites of disease x 2 - He was able to receive his Rituxan chemotherapy 01/20/18. Cytotoxic chemotherapy CHOP was held pending resolution of his partial small-bowel obstruction. Iron deficiency anemia - Will resume ferrous Sulfate PO once patient able to take PO intake GERD - IV Protonix DVT prophylaxis with SCDs - Attending Attestation Patient examined. Assessment and plan formulated with Amanda Sinha PA-C. I agree with the above. Pt passed liquid stool. Pt states that he feels more comfortable today. Pt requesting to advance diet. Diet advanced to liquids. PE: soft, mild distension (improved from 01/24), NT, +BS x4, no g/r/r KUB (01/25) --> mild gaseous distension. Case d/w Dr. Wilkes (01/25). No chemotherapy today. Dr. Catherine to see pt 01/26. Case d/w General Surgery, Dr. Rendon. Encourage ambulation.
--- NOTE | 2018-01-25 12:18 | P.PNGS ---
Subjective Patient reports: no new complaints, feels better, tolerating liquids well, flatus, bowel movement, diarrhea (He has no further bloating and overall feels better than he did yesterday.) Physical Exam Vital signs: Vital Signs 01/24/18 16:00 01/24/18 20:00 01/25/18 00:00 Temperature 98.5 F 98.1 F 98.5 F Pulse Rate 87 78 79 Respiratory Rate 18 18 16 Blood Pressure 152/92 H 151/89 H 137/74 Pulse Oximetry 98 96 97 01/25/18 04:00 01/25/18 08:45 Temperature 98.0 F Pulse Rate 71 73 Respiratory Rate 16 16 Blood Pressure 127/71 136/72 Pulse Oximetry 96 99 Intake & Output 01/24/18 01/25/18 01/25/18 18:59 06:59 18:59 Intake Total 120 / 120 1000 / 1000 Output Total 1450 / 1450 Balance -1330 / -1330 1000 / 1000 Weight 111.5 kg Intake: IV 1000 / 1000 1/2 Normal Saline Inj 1,000 ML 1000 / 1000 @ 84 mls/hr IV.CONT .[id number] [facility] Rx#:[id number] Oral 120 / 120 Output: Urine 1450 / 1450 Other: Date of Last Bowel Movement 01/24/18 01/25/18 - Routine Abdominal Exam Comments: His abdomen is soft, nontender, there is no guarding or rebound tenderness. Overall it is completely benign and quite different from the way it was described yesterday. Results - Labs 01/25/18 04:10 01/25/18 04:10 Laboratory Results - last 24 hr 01/25/18 01/25/18 04:10 04:10 WBC 6.2 RBC 3.67 L Hgb 10.6 L Hct 31.2 L MCV 84.8 MCH 28.9 MCHC 34.1 RDW 16.6 Plt Count 301 MPV 8.7 Neut % (Auto) 60.0 Lymph % (Auto) 8.4 L Moore % (Auto) 30.3 H Eos % (Auto) 1.0 Baso % (Auto) 0.3 Neut # (Auto) 3.7 Lymph # (Auto) 0.5 L Moore # (Auto) 1.9 H Eos # (Auto) 0.1 Baso # (Auto) 0.0 WBC Differential . Differential Comment Auto diff final Sodium 142 Potassium 4.2 Chloride 108 H Carbon Dioxide 25.6 Anion Gap 8 BUN 10 Creatinine 0.90 Estimated GFR 83 L Random Glucose 86 Calcium 8.5 Total Bilirubin 0.4 AST 37 ALT 40 Alkaline Phosphatase 58 Total Protein 5.9 L Albumin 2.9 L - Imaging Imaging: ITS Impressions Abdomen/Pelvis CT 01/21/18 00:00 CONCLUSION: 1. There is abnormal dilated and fluid-filled jejunum measuring up to 5.6 cm with the caliber change at the left lower quadrant. Findings are indicative of some degree of small bowel obstruction. Since no mass is identified at the site , adhesion, stricture, or small occult bowel lesion are considerations. These findings are new since the PET CT from 6 days ago. 2. There is trace free fluid within the pelvis, stable over the past 6 days. Small Bowel X-Ray 01/22/18 06:00 CONCLUSION: 1. Findings consistent with partial small bowel obstruction in the distal jejunum, improved from prior exam. Abdomen X-Ray 01/25/18 06:00 CONCLUSION: Relatively stable gaseous distention of small bowel since January 20. Assessment and Plan - Assessment (1) Small bowel obstruction Code(s): K56.609 - Unspecified intestinal obstruction, unspecified as to partial versus complete obstruction Status: Acute (2) Lymphoma of gastrointestinal tract Code(s): C85.93 - Non-Hodgkin lymphoma, unspecified, intra-abdominal lymph nodes Status: Acute - Plan I discussed the situation with Dr. Rose and the patient will be placed on clear liquids today. Hopefully he can advance to a full liquid diet tomorrow. Dr. Dorene Brock will see him tomorrow as well. He understands that he should be out of the bed walking quite frequently.
[2018-01-25] MEDS: Senna/Docusate Sodium 8.6/50 MG Tablet PO SCH ×2 (12:29→20:20)
[2018-01-26 06:16] LABS: Anion Gap 8 meq/L (5-15); Blood Urea Nitrogen 9 mg/dL (7-18); Calcium 8.5 mg/dL (8.5-10.1); Chloride 110 meq/L (98-107); Glomerular Filtration Rate Greater Than 89 mL/min (>89); Glucose,Random 83 mg/dL (74-106); Sodium 142 meq/L (136-145)
--- NOTE | 2018-01-26 08:28 | P.PNIM ---
Subjective Interval history: pt eager for next chemo rx passing stool Physical Exam Vital signs: Vital Signs 01/25/18 08:45 01/25/18 12:25 01/25/18 16:18 Temperature 98.2 F 97.9 F Pulse Rate 73 67 77 Respiratory Rate 16 17 18 Blood Pressure 136/72 155/84 H 130/82 Pulse Oximetry 99 97 95 01/25/18 20:00 01/26/18 00:00 01/26/18 04:00 Temperature 98.3 F 98.2 F 97.7 F Pulse Rate 75 69 72 Respiratory Rate 18 18 16 Blood Pressure 148/84 H 144/78 H 127/75 Pulse Oximetry 98 96 97 Intake & Output 01/25/18 01/26/18 01/26/18 18:59 06:59 18:59 Intake Total 1480 / 1480 1240 / 1240 Output Total 950 / 950 1400 / 1400 Balance 530 / 530 -160 / -160 Weight 110.5 kg Intake: IV 1000 / 1000 1000 / 1000 1/2 Normal Saline Inj 1,000 ML 1000 / 1000 1000 / 1000 @ 84 mls/hr IV.CONT .[id number] [facility] Rx#:[id number] Oral 480 / 480 240 / 240 Output: Urine 950 / 950 1400 / 1400 Other: Date of Last Bowel Movement 01/25/18 01/25/18 # Bowel Movements 3 nad heart reg lung cta abd s/nd/bs ext no edema Results - Labs CBC & Chem 7: 01/25/18 04:10 01/26/18 04:00 Laboratory Results - last 24 hr 01/26/18 04:00 Sodium 142 Potassium 4.0 Chloride 110 H Carbon Dioxide 24.0 Anion Gap 8 BUN 9 Creatinine 0.74 Estimated GFR Greater than 89 Random Glucose 83 Calcium 8.5 Assessment and Plan - Assessment (1) Partial small bowel obstruction Code(s): K56.600 - Partial intestinal obstruction, unspecified as to cause Status: Acute Plan: This is a 72-year-old male patient with past medical history which includes mesenteric B cell lymphoma/non-Hodgkin's lymphoma, GI bleed, iron deficiency anemia, GERD. Patient has had a history of GI bleed noted to be secondary to small bowel mass and underwent expiratory laparotomy revealing large mass in the root of mesentery with associated small bowel involvement. Resection was unable to be performed and biopsy revealed large B-cell lymphoma. Patient underwent 2 cycles of chemotherapy with oncologist Dr. Catherine with a good response based on recent PET/CT. Per Dr. Catherine CT PET scan showed resolution of the previous hypermetabolic left lower quadrant mass in the left lateral chest subcutaneous nodule. These were the sites of initial disease. There is, however, interval development of moderate dilatation of small loops of bowel in the right lower quadrant and small hypermetabolic focus either within or adjacent to the dilated loop of bowel without correlating to CT abnormality. Patient now presents to [facility] after evaluation at Dr. Catherine' s office 01/20/2018. Patient reports decreased appetite for the past 2 weeks, decreased p.o. intake and increased abdominal girth with liquid stools and abdominal cramping. Patient symptoms have been worsening over the last 3-5 days. Partial SBO -Abdomen X-Ray reveals:Dilated small bowel in the left mid abdomen concerning for some degree of obstruction. - Abdomen/Pelvis CT reveals: 1. There is abnormal dilated and fluid-filled jejunum measuring up to 5.6 cm with the caliber change at the left lower quadrant. Findings are indicative of some degree of small bowel obstruction. Since no mass is identified at the site, adhesion, stricture, or small occult bowel lesion are considerations. These findings are new since the PET CT from 6 days ago. 2. There is trace free fluid within the pelvis, stable over the past 6 days. - Consult to general surgery, patient known to Dr. Brock from previous admissions - 01/21 Dr. Rose discussed that case with Dr. Brock, no surgical plans at this time, continue to monitor - Small Bowel X-Ray 01/22/18 reviewed and reveals: 1. Findings consistent with partial small bowel obstruction in the distal jejunum, improved from prior exam. - KUB 01/25/18 Relatively stable gaseous distention of small bowel since January 20. awaiting reevaluation by gen surg and oncology today on liquid diet. advance per surgery. ambulate Mesenteric B cell lymphoma/non-Hodgkin's lymphoma - management per Dr. Catherine - to rituximab-CHOP chemotherapy with resolution of the sites of disease x 2 - He was able to receive his Rituxan chemotherapy 01/20/18. Cytotoxic chemotherapy CHOP was held pending resolution of his partial small-bowel obstruction. Iron deficiency anemia - Will resume ferrous Sulfate PO once patient able to take PO intake GERD - IV Protonix DVT prophylaxis with SCDs
[2018-01-26] MEDS: Pantoprazole Inj 40 MG Vial IV.PUSH SCH (10:52)
[2018-01-26] MEDS: Senna/Docusate Sodium 8.6/50 MG Tablet PO SCH ×2 (10:52→21:07)
[2018-01-26] MEDS: Sodium Chloride 0.45 % Inj 1,000 ML IV.CONT SCH ×2 (10:58→21:09)
--- NOTE | 2018-01-26 12:17 | P.PNGS ---
Subjective Interval history: He is doing well now again with clears and tolerating three ensures daily. Mild bloating. + BMs. Physical Exam Vital signs: Vital Signs 01/25/18 12:25 01/25/18 16:18 01/25/18 20:00 Temperature 98.2 F 97.9 F 98.3 F Pulse Rate 67 77 75 Respiratory Rate 17 18 18 Blood Pressure 155/84 H 130/82 148/84 H Pulse Oximetry 97 95 98 01/26/18 00:00 01/26/18 04:00 01/26/18 08:00 Temperature 98.2 F 97.7 F 97.7 F Pulse Rate 69 72 66 Respiratory Rate 18 16 18 Blood Pressure 144/78 H 127/75 132/84 Pulse Oximetry 96 97 97 Intake & Output 01/25/18 01/26/18 01/26/18 18:59 06:59 18:59 Intake Total 1480 / 1480 1240 / 1240 1000 / 1000 Output Total 950 / 950 1400 / 1400 Balance 530 / 530 -160 / -160 1000 / 1000 Weight 110.5 kg Intake: IV 1000 / 1000 1000 / 1000 1000 / 1000 1/2 Normal Saline Inj 1,000 ML 1000 / 1000 1000 / 1000 1000 / 1000 @ 84 mls/hr IV.CONT .[id number] [facility] Rx#:[id number] Oral 480 / 480 240 / 240 Output: Urine 950 / 950 1400 / 1400 Other: Date of Last Bowel Movement 01/25/18 01/25/18 # Bowel Movements 3 Narrative: NAD MIld distention, ntd Results - Labs 01/25/18 04:10 01/26/18 04:00 Laboratory Results - last 24 hr 01/26/18 04:00 Sodium 142 Potassium 4.0 Chloride 110 H Carbon Dioxide 24.0 Anion Gap 8 BUN 9 Creatinine 0.74 Estimated GFR Greater than 89 Random Glucose 83 Calcium 8.5 - Imaging Imaging: ITS Impressions Abdomen/Pelvis CT 01/21/18 00:00 CONCLUSION: 1. There is abnormal dilated and fluid-filled jejunum measuring up to 5.6 cm with the caliber change at the left lower quadrant. Findings are indicative of some degree of small bowel obstruction. Since no mass is identified at the site , adhesion, stricture, or small occult bowel lesion are considerations. These findings are new since the PET CT from 6 days ago. 2. There is trace free fluid within the pelvis, stable over the past 6 days. Small Bowel X-Ray 01/22/18 06:00 CONCLUSION: 1. Findings consistent with partial small bowel obstruction in the distal jejunum, improved from prior exam. Abdomen X-Ray 01/25/18 06:00 CONCLUSION: Relatively stable gaseous distention of small bowel since January 20. Assessment and Plan - Assessment (1) Small bowel obstruction Code(s): K56.609 - Unspecified intestinal obstruction, unspecified as to partial versus complete obstruction Status: Acute (2) Lymphoma of gastrointestinal tract Code(s): C85.93 - Non-Hodgkin lymphoma, unspecified, intra-abdominal lymph nodes Status: Acute - Plan He is having intermittent bloating secondary to this partial obstruction. Stay with ensure and clears today.
--- NOTE | 2018-01-26 15:08 | P.PNONC ---
Subjective Interval history: Afebrile Late entry-patient seen approximately 830 this morning. Reports he has abdominal cramping after he eats Having loose stool and passing gas Tolerating liquid diet Trying to ambulate in halls Objective Vital Signs/Intake & Output: Vital Signs 01/25/18 16:18 01/25/18 20:00 01/26/18 00:00 Temperature 97.9 F 98.3 F 98.2 F Pulse Rate 77 75 69 Respiratory Rate 18 18 18 Blood Pressure 130/82 148/84 H 144/78 H Pulse Oximetry 95 98 96 01/26/18 04:00 01/26/18 08:00 Temperature 97.7 F 97.7 F Pulse Rate 72 66 Respiratory Rate 16 18 Blood Pressure 127/75 132/84 Pulse Oximetry 97 97 Intake & Output 01/25/18 01/26/18 01/26/18 18:59 06:59 18:59 Intake Total 1480 / 1480 1240 / 1240 1000 / 1000 Output Total 950 / 950 1400 / 1400 Balance 530 / 530 -160 / -160 1000 / 1000 Weight 243 lb 9.773 oz Intake: IV 1000 / 1000 1000 / 1000 1000 / 1000 1/2 Normal Saline Inj 1,000 ML 1000 / 1000 1000 / 1000 1000 / 1000 @ 84 mls/hr IV.CONT .[id number] [facility] Rx#:[id number] Oral 480 / 480 240 / 240 Output: Urine 950 / 950 1400 / 1400 Other: Date of Last Bowel Movement 01/25/18 01/25/18 # Bowel Movements 3 Result Diagrams: 01/25/18 04:10 01/26/18 04:00 Laboratory Results: Laboratory Results - last 24 hr 01/26/18 04:00 Sodium 142 Potassium 4.0 Chloride 110 H Carbon Dioxide 24.0 Anion Gap 8 BUN 9 Creatinine 0.74 Estimated GFR Greater than 89 Random Glucose 83 Calcium 8.5 Medications: Active Medications Generic Name Dose Route Start Last Admin Trade Name Freq PRN Reason Stop Dose Admin Benzocaine/Menthol 1 lozenge 01/21/18 14:00 01/22/18 05:22 Chloraseptic Sore Throat Lozenge BUCCAL 1 lozenge Q2H PRN Administration SORE THROAT Sodium Chloride 1,000 mls @ 84 mls/hr 01/24/18 19:55 01/26/18 10:58 1/2 Normal Saline Inj IV.CONT 84 mls/hr .[id number] [facility] Administration Pantoprazole Sodium 40 mg 01/21/18 10:00 01/26/18 10:52 Protonix Inj IV.PUSH 40 mg DAILY [facility] Administration Senna/Docusate Sodium 1 tab 01/20/18 21:00 01/26/18 10:52 Mimi-Colace PO 1 tab BID [facility] Administration Objective Remarks: GENERAL: Well-nourished, well-developed male patient, in no acute distress. SKIN: Warm and dry. HEAD: Normocephalic. EYES: No scleral icterus. No injection or drainage. NECK: Supple, trachea midline. CARDIOVASCULAR: Regular rate and rhythm without murmurs. RESPIRATORY: Breath sounds clear, equal bilaterally. No accessory muscle use. GASTROINTESTINAL: Abdomen soft, non-tender, nondistended. Scar to mid abdomen. EXTREMITIES: No cyanosis, or edema. MUSCULOSKELETAL: Adequate muscle tone. NEUROLOGICAL: No obvious focal deficit. Awake, alert, and oriented x3. Assessment/Plan - Plan Mr. Reina is a pleasant 72-year-old gentleman who is currently hospitalized with a partial small bowel obstruction. 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 Patient has had approximately 2 weeks of abdominal pain, bloating and intermittent watery bowel movements. He had an outpatient PET scan which revealed a possible small bowel obstruction. This was confirmed with CT. Plan: 1. Hold chemotherapy today. 2. He had episode of abdominal distention over the weekend and was made n.p.o. ; he is currently on clear liquids. Advancement per general surgery 3. Continue supportive care. - Attending Statement The exam, history, and the medical decision-making described in the above note were completed with the assistance of the mid-level provider. I reviewed and agree with the findings presented. I attest that I had a [id number] encounter with the patient on the same day, and personally performed and documented my assessment and findings in the medical record. Tolerating full liquid diet. He is actually drinking Ensure. He has some bloating after drinking. He is passing gas. He is having bowel movements. We discussed the risk and benefit of chemotherapy. Case was discussed with Dr. Brock. We agreed to proceed with cycle #3 chemotherapy which is delayed a week at this point. His dose of Rituxan was administered last week. We will proceed with treatment as planned tomorrow in hopes of it improving his symptomatology. Labs including a CBC, comprehensive metabolic panel, LDH will be coordinated.
[2018-01-27 05:50] LABS: Baso % (Auto) 0.6 % (0.0-2.0); Eos # (Auto) 0.1 th/mm3 (0.0-0.4); Eos % (Auto) 2.3 % (0.0-4.0); Hematocrit 32.1 % (39.0-51.0); Hemoglobin 10.6 gm/dL (13.0-17.0); Lymph # (Auto) 0.6 th/mm3 (1.0-4.8); Lymph % (Auto) 17.2 % (9.0-44.0); Mean Corpuscular HGB Conc 33.1 % (32.0-36.0); Mean Corpuscular Hemoglobin 28.5 pg (27.0-34.0); Mean Corpuscular Volume 86.2 fL (80.0-100.0); Mean Platelet Volume 8.9 fL (7.0-11.0); Mono # (Auto) 1.2 th/mm3 (0.0-0.9); Mono % (Auto) 35.4 % (0.0-8.0); Neut # (Auto) 1.6 th/mm3 (1.8-7.7); Neut % (Auto) 44.5 % (16.0-70.0); Platelet Count 255 th/mm3 (150-450); Red Blood Count 3.73 mil/mm3 (4.50-5.90); Red Cell Distribution Width 16.9 % (11.6-17.2); White Blood Count 3.5 th/mm3 (4.0-11.0)
[2018-01-27 06:01] LABS: Albumin 2.9 g/dL (3.4-5.0); Anion Gap 9 meq/L (5-15); Aspartate Aminotransferase 18 U/L (15-37); Blood Urea Nitrogen 7 mg/dL (7-18); Calcium 8.8 mg/dL (8.5-10.1); Carbon Dioxide 26.3 meq/L (21.0-32.0); Chloride 108 meq/L (98-107); Glomerular Filtration Rate Greater Than 89 mL/min (>89); Glucose,Random 89 mg/dL (74-106); Sodium 143 meq/L (136-145)
[2018-01-27 06:02] LABS: Alanine Aminotransferase 47 U/L (12-78); Lactate Dehydrogenase 156 U/L (87-241)
[2018-01-27 06:04] LABS: Alkaline Phosphatase 53 U/L (45-117); Total Protein 5.7 g/dL (6.4-8.2)
--- NOTE | 2018-01-27 08:45 | P.PNIM ---
Subjective Interval history: pt says tolerating current diet and having stools less bloating. no new complaints Physical Exam Vital signs: Vital Signs 01/26/18 17:00 01/26/18 20:00 01/27/18 00:00 Temperature 97.4 F L 97.4 F L 98.5 F Pulse Rate 72 60 63 Respiratory Rate 18 16 16 Blood Pressure 137/84 149/88 H 146/72 H Pulse Oximetry 97 97 98 01/27/18 04:00 01/27/18 07:39 Temperature 97.7 F 97.9 F Pulse Rate 70 62 Respiratory Rate 14 18 Blood Pressure 125/76 129/75 Pulse Oximetry 98 97 Intake & Output 01/26/18 01/27/18 01/27/18 18:59 06:59 18:59 Intake Total 1000 / 1000 1277 / 1277 Output Total 450 / 450 Balance 1000 / 1000 827 / 827 Weight 111.9 kg Intake: IV 1000 / 1000 1000 / 1000 1/2 Normal Saline Inj 1,000 ML 1000 / 1000 1000 / 1000 @ 84 mls/hr IV.CONT .[id number] [facility] Rx#:[id number] Oral 277 / 277 Output: Urine 450 / 450 Other: Date of Last Bowel Movement 01/26/18 01/26/18 nad no labored breathing bs/nt/nd ext no edema Results - Labs CBC & Chem 7: 01/27/18 04:55 01/27/18 04:55 Laboratory Results - last 24 hr 01/27/18 01/27/18 04:55 04:55 WBC 3.5 L RBC 3.73 L Hgb 10.6 L Hct 32.1 L MCV 86.2 MCH 28.5 MCHC 33.1 RDW 16.9 Plt Count 255 MPV 8.9 Neut % (Auto) 44.5 Lymph % (Auto) 17.2 [place] % (Auto) 35.4 H Eos % (Auto) 2.3 Baso % (Auto) 0.6 Neut # (Auto) 1.6 L Lymph # (Auto) 0.6 L [place] # (Auto) 1.2 H Eos # (Auto) 0.1 Baso # (Auto) 0.0 WBC Differential . Differential Comment Auto diff final Retic Count 1.0 Absolute Retic 38.4 Sodium 143 Potassium 4.0 Chloride 108 H Carbon Dioxide 26.3 Anion Gap 9 BUN 7 Creatinine 0.71 Estimated GFR Greater than 89 Random Glucose 89 Calcium 8.8 Total Bilirubin 0.4 AST 18 ALT 47 Alkaline Phosphatase 53 Lactate Dehydrogenase 156 Total Protein 5.7 L Albumin 2.9 L Assessment and Plan - Assessment (1) Partial small bowel obstruction Code(s): K56.600 - Partial intestinal obstruction, unspecified as to cause Status: Acute Plan: This is a 72-year-old male patient with past medical history which includes mesenteric B cell lymphoma/non-Hodgkin's lymphoma, GI bleed, iron deficiency anemia, GERD. Patient has had a history of GI bleed noted to be secondary to small bowel mass and underwent expiratory laparotomy revealing large mass in the root of mesentery with associated small bowel involvement. Resection was unable to be performed and biopsy revealed large B-cell lymphoma. Patient underwent 2 cycles of chemotherapy with oncologist Dr. Catherine with a good response based on recent PET/CT. Per Dr. Catherine CT PET scan showed resolution of the previous hypermetabolic left lower quadrant mass in the left lateral chest subcutaneous nodule. These were the sites of initial disease. There is, however, interval development of moderate dilatation of small loops of bowel in the right lower quadrant and small hypermetabolic focus either within or adjacent to the dilated loop of bowel without correlating to CT abnormality. Patient now presents to [facility] after evaluation at Dr. Catherine' s office 01/20/2018. Patient reports decreased appetite for the past 2 weeks, decreased p.o. intake and increased abdominal girth with liquid stools and abdominal cramping. Patient symptoms have been worsening over the last 3-5 days. Partial SBO -Abdomen X-Ray reveals:Dilated small bowel in the left mid abdomen concerning for some degree of obstruction. - Abdomen/Pelvis CT reveals: 1. There is abnormal dilated and fluid-filled jejunum measuring up to 5.6 cm with the caliber change at the left lower quadrant. Findings are indicative of some degree of small bowel obstruction. Since no mass is identified at the site, adhesion, stricture, or small occult bowel lesion are considerations. These findings are new since the PET CT from 6 days ago. 2. There is trace free fluid within the pelvis, stable over the past 6 days. - Consult to general surgery, patient known to Dr. Brock from previous admissions - 01/21 Dr. Rose discussed that case with Dr. Brock, no surgical plans at this time, continue to monitor - Small Bowel X-Ray 01/22/18 reviewed and reveals: 1. Findings consistent with partial small bowel obstruction in the distal jejunum, improved from prior exam. - KUB 01/25/18 Relatively stable gaseous distention of small bowel since January 20. diet per gen surg. liquid/nutrition supplement chemo planned for today supportive care. Mesenteric B cell lymphoma/non-Hodgkin's lymphoma - management per Dr. Catherine - to rituximab-CHOP chemotherapy with resolution of the sites of disease x 2 - He was able to receive his Rituxan chemotherapy 01/20/18. Cytotoxic chemotherapy CHOP was held pending resolution of his partial small-bowel obstruction. Iron deficiency anemia - Will resume ferrous Sulfate PO once patient able to take PO intake GERD - IV Protonix DVT prophylaxis with SCDs
[2018-01-27] MEDS: Pantoprazole Inj 40 MG Vial IV.PUSH SCH (09:11)
[2018-01-27] MEDS: Senna/Docusate Sodium 8.6/50 MG Tablet PO SCH ×2 (09:11→20:09)
--- NOTE | 2018-01-27 09:51 | P.PNONC ---
Subjective Interval history: Afebrile. Patient reports continued daily bowel movements with some solid stool involved. He is tolerating a full liquid diet. Denies nausea or vomiting. He is pending chemotherapy today. Objective Vital Signs/Intake & Output: Vital Signs 01/26/18 17:00 01/26/18 20:00 01/27/18 00:00 Temperature 97.4 F L 97.4 F L 98.5 F Pulse Rate 72 60 63 Respiratory Rate 18 16 16 Blood Pressure 137/84 149/88 H 146/72 H Pulse Oximetry 97 97 98 01/27/18 04:00 01/27/18 07:39 Temperature 97.7 F 97.9 F Pulse Rate 70 62 Respiratory Rate 14 18 Blood Pressure 125/76 129/75 Pulse Oximetry 98 97 Intake & Output 01/26/18 01/27/18 01/27/18 18:59 06:59 18:59 Intake Total 1000 / 1000 1277 / 1277 Output Total 450 / 450 Balance 1000 / 1000 827 / 827 Weight 111.9 kg Intake: IV 1000 / 1000 1000 / 1000 1/2 Normal Saline Inj 1,000 ML 1000 / 1000 1000 / 1000 @ 84 mls/hr IV.CONT .[id number] [facility] Rx#:[id number] Oral 277 / 277 Output: Urine 450 / 450 Other: Date of Last Bowel Movement 01/26/18 01/26/18 Result Diagrams: 01/27/18 04:55 01/27/18 04:55 Laboratory Results: Laboratory Results - last 24 hr 01/27/18 01/27/18 04:55 04:55 WBC 3.5 L RBC 3.73 L Hgb 10.6 L Hct 32.1 L MCV 86.2 MCH 28.5 MCHC 33.1 RDW 16.9 Plt Count 255 MPV 8.9 Neut % (Auto) 44.5 Lymph % (Auto) 17.2 [place] % (Auto) 35.4 H Eos % (Auto) 2.3 Baso % (Auto) 0.6 Neut # (Auto) 1.6 L Lymph # (Auto) 0.6 L [place] # (Auto) 1.2 H Eos # (Auto) 0.1 Baso # (Auto) 0.0 WBC Differential . Differential Comment Auto diff final Retic Count 1.0 Absolute Retic 38.4 Sodium 143 Potassium 4.0 Chloride 108 H Carbon Dioxide 26.3 Anion Gap 9 BUN 7 Creatinine 0.71 Estimated GFR Greater than 89 Random Glucose 89 Calcium 8.8 Total Bilirubin 0.4 AST 18 ALT 47 Alkaline Phosphatase 53 Lactate Dehydrogenase 156 Total Protein 5.7 L Albumin 2.9 L Medications: Active Medications Generic Name Dose Route Start Last Admin Trade Name Freq PRN Reason Stop Dose Admin Benzocaine/Menthol 1 lozenge 01/21/18 14:00 01/22/18 05:22 Chloraseptic Sore Throat Lozenge BUCCAL 1 lozenge Q2H PRN Administration SORE THROAT Sodium Chloride 1,000 mls @ 84 mls/hr 01/24/18 19:55 01/26/18 21:09 1/2 Normal Saline Inj IV.CONT 84 mls/hr .[id number] SUSY Administration Pantoprazole Sodium 40 mg 01/21/18 10:00 01/27/18 09:11 Protonix Inj IV.PUSH 40 mg DAILY SUSY Administration Senna/Docusate Sodium 1 tab 01/20/18 21:00 01/27/18 09:11 Mimi-Colace PO 1 tab BID SUSY Administration Objective Remarks: GENERAL: Well-nourished, well-developed male patient, in no acute distress. SKIN: Warm and dry. HEAD: Normocephalic. EYES: No scleral icterus. No injection or drainage. NECK: Supple, trachea midline. CARDIOVASCULAR: Regular rate and rhythm without murmurs. RESPIRATORY: Breath sounds clear, equal bilaterally. No accessory muscle use. GASTROINTESTINAL: Abdomen soft, non-tender, nondistended. Scar to mid abdomen. +BS. EXTREMITIES: No cyanosis, or edema. MUSCULOSKELETAL: Adequate muscle tone. NEUROLOGICAL: No obvious focal deficit. Awake, alert, and oriented x3. PSYCHIATRIC: Normal mood; insight and judgment normal. Assessment/Plan - Plan Mr. Reina is a pleasant 72-year-old gentleman who is currently hospitalized with a partial small bowel obstruction. 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 Patient has had approximately 2 weeks of abdominal pain, bloating and intermittent watery bowel movements. He had an outpatient PET scan which revealed a possible small bowel obstruction. This was confirmed with CT. Plan: 1. Patient will receive CHOP chemotherapy today. 2. Continues on full liquid diet, management per surgery. 3. Continue supportive care. - Attending Statement The exam, history, and the medical decision-making described in the above note were completed with the assistance of the mid-level provider. I reviewed and agree with the findings presented. I attest that I had a [id number] encounter with the patient on the same day, and personally performed and documented my assessment and findings in the medical record. Patient tolerating chemotherapy well. He is in the midst of Cytoxan administration. He denies any nausea or vomiting. He is tolerating 2 cans of Ensure with each meal. He still has some bloating but no pain. He is having bowel movements and gas. He had a formed stool this morning. He is eager to go home. He is cleared for discharge by general surgery if he continues to tolerate his meals. Anticipate discharge from oncology standpoint with follow- up on an outpatient basis. He will need his Neulasta support in the form of the on body injector administered tomorrow. His questions were answered to his satisfaction.
[2018-01-27] MEDS: Sodium Chloride 0.45 % Inj 1,000 ML IV.CONT SCH (10:08)
--- NOTE | 2018-01-27 10:50 | P.PNGS ---
Subjective Interval history: He will undergo chemotherapy today. He tolerated 1-2 ensures at each mealtime yesterday. Overnight had lots of flatus and formed stools. Physical Exam Vital signs: Vital Signs 01/26/18 17:00 01/26/18 20:00 01/27/18 00:00 Temperature 97.4 F L 97.4 F L 98.5 F Pulse Rate 72 60 63 Respiratory Rate 18 16 16 Blood Pressure 137/84 149/88 H 146/72 H Pulse Oximetry 97 97 98 01/27/18 04:00 01/27/18 07:39 Temperature 97.7 F 97.9 F Pulse Rate 70 62 Respiratory Rate 14 18 Blood Pressure 125/76 129/75 Pulse Oximetry 98 97 Intake & Output 01/26/18 01/27/18 01/27/18 18:59 06:59 18:59 Intake Total 1000 / 1000 1277 / 1277 1000 / 1000 Output Total 450 / 450 Balance 1000 / 1000 827 / 827 1000 / 1000 Weight 111.9 kg Intake: IV 1000 / 1000 1000 / 1000 1000 / 1000 1/2 Normal Saline Inj 1,000 ML 1000 / 1000 1000 / 1000 1000 / 1000 @ 84 mls/hr IV.CONT .[id number] [facility] Rx#:[id number] Oral 277 / 277 Output: Urine 450 / 450 Other: Date of Last Bowel Movement 01/26/18 01/26/18 Narrative: NAD Abd: soft, mild distention. Results - Labs 01/27/18 04:55 01/27/18 04:55 Laboratory Results - last 24 hr 01/27/18 01/27/18 04:55 04:55 WBC 3.5 L RBC 3.73 L Hgb 10.6 L Hct 32.1 L MCV 86.2 MCH 28.5 MCHC 33.1 RDW 16.9 Plt Count 255 MPV 8.9 Neut % (Auto) 44.5 Lymph % (Auto) 17.2 [place] % (Auto) 35.4 H Eos % (Auto) 2.3 Baso % (Auto) 0.6 Neut # (Auto) 1.6 L Lymph # (Auto) 0.6 L [place] # (Auto) 1.2 H Eos # (Auto) 0.1 Baso # (Auto) 0.0 WBC Differential . Differential Comment Auto diff final Retic Count 1.0 Absolute Retic 38.4 Sodium 143 Potassium 4.0 Chloride 108 H Carbon Dioxide 26.3 Anion Gap 9 BUN 7 Creatinine 0.71 Estimated GFR Greater than 89 Random Glucose 89 Calcium 8.8 Total Bilirubin 0.4 AST 18 ALT 47 Alkaline Phosphatase 53 Lactate Dehydrogenase 156 Total Protein 5.7 L Albumin 2.9 L - Imaging Imaging: ITS Impressions Abdomen/Pelvis CT 01/21/18 00:00 CONCLUSION: 1. There is abnormal dilated and fluid-filled jejunum measuring up to 5.6 cm with the caliber change at the left lower quadrant. Findings are indicative of some degree of small bowel obstruction. Since no mass is identified at the site , adhesion, stricture, or small occult bowel lesion are considerations. These findings are new since the PET CT from 6 days ago. 2. There is trace free fluid within the pelvis, stable over the past 6 days. Small Bowel X-Ray 01/22/18 06:00 CONCLUSION: 1. Findings consistent with partial small bowel obstruction in the distal jejunum, improved from prior exam. Abdomen X-Ray 01/25/18 06:00 CONCLUSION: Relatively stable gaseous distention of small bowel since January 20. Assessment and Plan - Assessment (1) Small bowel obstruction Code(s): K56.609 - Unspecified intestinal obstruction, unspecified as to partial versus complete obstruction Status: Acute (2) Lymphoma of gastrointestinal tract Code(s): C85.93 - Non-Hodgkin lymphoma, unspecified, intra-abdominal lymph nodes Status: Acute - Plan He needs 2 ensure with each meal. If he tolerates 1-2 with each meal without severe bloating he can be discharged tomorrow from my standpoint.
[2018-01-27] MEDS ORDERED: Sodium Chlor 0.9% Inj 250 ML IV.SIG ONE (13:30)
[2018-01-27] MEDS ORDERED: Granisetron Inj 1 MG, Dexamethasone Inj 20 MG in Sodium Chlor 0.9% Inj 50 ML IV.SIG ONE ×2 (13:30)
[2018-01-27] MEDS ORDERED: DOXOrubicin Inj 10 MG/5 ML VIAL IV.PUSH ONE (14:00)
[2018-01-27] MEDS ORDERED: vinCRIStine Inj 2 MG in Sodium Chlor 0.9% Inj 50 ML IV.SIG ONE (14:30)
[2018-01-27] MEDS ORDERED: CYCLOPHOSPHAMIDE IV.SIG ONE (15:00)
[2018-01-27] MEDS ORDERED: SODIUM CHLOR 0.9% IV.SIG ONE (15:00)
[2018-01-28 08:49] VITALS: BP 138/79; PULSE 75; RESP 17; TEMP 97.8; O2SAT 97
--- NOTE | 2018-01-28 09:02 | P.DS ---
Date of admission: 01/20/18 15:34 Primary care physician: chiara Fajardo Brief History from admission: This is a 72-year-old male patient with past medical history which includes mesenteric B cell lymphoma/non-Hodgkin's lymphoma, GI bleed, iron deficiency anemia, GERD. Patient has had a history of GI bleed noted to be secondary to small bowel mass and underwent expiratory laparotomy revealing large mass in the root of mesentery with associated small bowel involvement. Resection was unable to be performed and biopsy revealed large B-cell lymphoma. Patient underwent 2 cycles of chemotherapy with oncologist Dr. Catherine with a good response based on recent PET/CT. Per Dr. Catherine CT PET scan showed resolution of the previous hypermetabolic left lower quadrant mass in the left lateral chest subcutaneous nodule. These were the sites of initial disease. There is, however, interval development of moderate dilatation of small loops of bowel in the right lower quadrant and small hypermetabolic focus either within or adjacent to the dilated loop of bowel without correlating to CT abnormality. Patient now presents to [facility] after evaluation at Dr. Catherine' s office 01/20/2018. Patient reports decreased appetite for the past 2 weeks, decreased p.o. intake and increased abdominal girth with liquid stools and abdominal cramping. Patient symptoms have been worsening over the last 3-5 days. DS: Diagnosis - Discharge Diagnosis (1) Partial small bowel obstruction Status: Acute DS: Summary Hospital Course: Assessment and Plan - Assessment (1) Partial small bowel obstruction Code(s): K56.600 - Partial intestinal obstruction, unspecified as to cause Status: Acute Plan: This is a 72-year-old male patient with past medical history which includes mesenteric B cell lymphoma/non-Hodgkin's lymphoma, GI bleed, iron deficiency anemia, GERD. Patient has had a history of GI bleed noted to be secondary to small bowel mass and underwent expiratory laparotomy revealing large mass in the root of mesentery with associated small bowel involvement. Resection was unable to be performed and biopsy revealed large B-cell lymphoma. Patient underwent 2 cycles of chemotherapy with oncologist Dr. Catherine with a good response based on recent PET/CT. Per Dr. Catherine CT PET scan showed resolution of the previous hypermetabolic left lower quadrant mass in the left lateral chest subcutaneous nodule. These were the sites of initial disease. There is, however, interval development of moderate dilatation of small loops of bowel in the right lower quadrant and small hypermetabolic focus either within or adjacent to the dilated loop of bowel without correlating to CT abnormality. Patient now presents to [facility] after evaluation at Dr. Catherine' s office 01/20/2018. Patient reports decreased appetite for the past 2 weeks, decreased p.o. intake and increased abdominal girth with liquid stools and abdominal cramping. Patient symptoms have been worsening over the last 3-5 days. Partial SBO -Abdomen X-Ray reveals:Dilated small bowel in the left mid abdomen concerning for some degree of obstruction. - Abdomen/Pelvis CT reveals: 1. There is abnormal dilated and fluid-filled jejunum measuring up to 5.6 cm with the caliber change at the left lower quadrant. Findings are indicative of some degree of small bowel obstruction. Since no mass is identified at the site, adhesion, stricture, or small occult bowel lesion are considerations. These findings are new since the PET CT from 6 days ago. 2. There is trace free fluid within the pelvis, stable over the past 6 days. - Consult to general surgery, patient known to Dr. Brock from previous admissions - 01/21 Dr. Rose discussed that case with Dr. Brock, no surgical plans at this time, continue to monitor - Small Bowel X-Ray 01/22/18 reviewed and reveals: 1. Findings consistent with partial small bowel obstruction in the distal jejunum, improved from prior exam. - KUB 01/25/18 Relatively stable gaseous distention of small bowel since January 20. pt tolerating clears and ensure 1-2 each meal chemotherapy administered cyclophosphamide and doxarubicin on 01/27 dc home today Mesenteric B cell lymphoma/non-Hodgkin's lymphoma - management per Dr. Catherine - to rituximab-CHOP chemotherapy with resolution of the sites of disease x 2 - He was able to receive his Rituxan chemotherapy 01/20/18. Cytotoxic chemotherapy CHOP was held pending resolution of his partial small-bowel obstruction. Iron deficiency anemia - Will resume ferrous Sulfate PO once patient able to take PO intake GERD - IV Protonix - Time Spent with Patient Total time spent providing and/or coordinating discharge services: Greater than 30 minutes - Quality: VTE Deep Vein Thrombosis/Pulmonary Embolism Present on Admission: No Exam Vital signs: Vital Signs 01/27/18 11:15 01/27/18 16:08 01/27/18 16:28 Temperature 97.9 F 98.6 F Pulse Rate 66 70 68 Respiratory Rate 18 18 Blood Pressure 143/82 H 137/76 146/79 H Pulse Oximetry 98 96 97 01/27/18 20:00 01/28/18 00:00 01/28/18 04:48 Temperature 98.0 F 97.7 F 97.6 F Pulse Rate 81 78 74 Respiratory Rate 18 16 16 Blood Pressure 149/86 H 122/70 114/69 Pulse Oximetry 96 96 96 01/28/18 08:00 Temperature 97.8 F Pulse Rate 75 Respiratory Rate 17 Blood Pressure 138/79 Pulse Oximetry 97 Intake & Output 01/27/18 01/28/18 01/28/18 18:59 06:59 18:59 Intake Total 3258 / 3258 600 / 600 Output Total 1150 / 1150 Balance 2108 / 2108 600 / 600 Weight 111.7 kg Intake: IV 1608 / 1608 600 / 600 1/2 Normal Saline Inj 1,000 ML 1500 / 1500 @ 84 mls/hr IV.CONT .[id number] [facility] Rx#:[id number] Cytoxan Inj 1,815 MG In NS Inj 500 / 500 500 ML @ 333.333 mls/hr IV.SIG ONCE ONE Rx#:[id number] Kytril Inj 1 MG Decadron Inj 20 56 / 56 MG In NS Inj 50 ML @ 224 mls/ hr IV.SIG ONCE ONE Rx#:[id number] NS Inj 250 ML @ As Directed IV. 100 / 100 SIG ONCE ONE Rx#:[id number] Oncovin Inj 2 MG In NS Inj 50 52 / 52 ML @ 312 mls/hr IV.SIG ONCE ONE Rx#:[id number] Oral 1650 / 1650 Output: Urine 1150 / 1150 Other: Date of Last Bowel Movement 01/27/18 01/27/18 # Bowel Movements 1 heart reg lung cta abd s/nt/bs ext no edema Results Procedures completed during hospitalization: sbft ct a/p - Impressions ITS Impressions Abdomen/Pelvis CT 01/21/18 00:00 CONCLUSION: 1. There is abnormal dilated and fluid-filled jejunum measuring up to 5.6 cm with the caliber change at the left lower quadrant. Findings are indicative of some degree of small bowel obstruction. Since no mass is identified at the site , adhesion, stricture, or small occult bowel lesion are considerations. These findings are new since the PET CT from 6 days ago. 2. There is trace free fluid within the pelvis, stable over the past 6 days. Small Bowel X-Ray 01/22/18 06:00 CONCLUSION: 1. Findings consistent with partial small bowel obstruction in the distal jejunum, improved from prior exam. Abdomen X-Ray 01/25/18 06:00 CONCLUSION: Relatively stable gaseous distention of small bowel since January 20. Discharge Plan - Discharge Disposition Patient Disposition: Discharge Home - Discharge Condition Condition: Stable - Discharge Order Discharge Orders: Discharge Order (Routine); Ordered 01/28/18 Ordered By: Ronald Ariza - Discharge Details Anticipated Discharge Date: 01/28/18 Discharge Comment: dc home today. notify Dr Catherine and Dr Brock of in and obtain any f/u instructions - Physicians Team Attending Provider: Lydia Catherine Other Providers: Danial Brock MD ; Frank Rose DO - Rxs /Orders / Referrals /Forms Prescriptions: Continue docusate sodium 50 mg Capsule 100 mg PO DAILY PRN (Reason: Constipation) ferrous sulfate 325 mg (65 mg iron) Tablet 325 mg PO DAILY ranitidine HCl [Zantac] 150 mg Tablet 150 mg PO BID PRN (Reason: Acid Reflux) Referrals: chiara Fajardo [Other] - See Instructions Danial Brock MD [GENERAL SURGERY] - See Instructions (1 week) Lydia Catherine MD [Physician] - See Instructions (1 week.)
--- NOTE | 2018-01-28 09:13 | P.PNONC ---
Subjective Interval history: Pt reports he has been able to tolerate ensures with his meals. He continues to have gas and had formed BM yesterday. He has no complaints at this time. We have discussed that he will avoid any binding medications at this time. He will hold his iron and avoid using gasX or anti-diarrheals. Discussed Neulasta injection scheduled for tomorrow in [place] office. Pt has f/u labs and apt. Objective Vital Signs/Intake & Output: Vital Signs 01/27/18 11:15 01/27/18 16:08 01/27/18 16:28 Temperature 97.9 F 98.6 F Pulse Rate 66 70 68 Respiratory Rate 18 18 Blood Pressure 143/82 H 137/76 146/79 H Pulse Oximetry 98 96 97 01/27/18 20:00 01/28/18 00:00 01/28/18 04:48 Temperature 98.0 F 97.7 F 97.6 F Pulse Rate 81 78 74 Respiratory Rate 18 16 16 Blood Pressure 149/86 H 122/70 114/69 Pulse Oximetry 96 96 96 01/28/18 08:00 Temperature 97.8 F Pulse Rate 75 Respiratory Rate 17 Blood Pressure 138/79 Pulse Oximetry 97 Intake & Output 01/27/18 01/28/18 01/28/18 18:59 06:59 18:59 Intake Total 3258 / 3258 600 / 600 Output Total 1150 / 1150 Balance 2108 / 2108 600 / 600 Weight 111.7 kg Intake: IV 1608 / 1608 600 / 600 1/2 Normal Saline Inj 1,000 ML 1500 / 1500 @ 84 mls/hr IV.CONT .[id number] [facility] Rx#:[id number] Cytoxan Inj 1,815 MG In NS Inj 500 / 500 500 ML @ 333.333 mls/hr IV.SIG ONCE ONE Rx#:[id number] Kytril Inj 1 MG Decadron Inj 20 56 / 56 MG In NS Inj 50 ML @ 224 mls/ hr IV.SIG ONCE ONE Rx#:[id number] NS Inj 250 ML @ As Directed IV. 100 / 100 SIG ONCE ONE Rx#:[id number] Oncovin Inj 2 MG In NS Inj 50 52 / 52 ML @ 312 mls/hr IV.SIG ONCE ONE Rx#:[id number] Oral 1650 / 1650 Output: Urine 1150 / 1150 Other: Date of Last Bowel Movement 10/16/18 10/16/18 # Bowel Movements 1 Result Diagrams: 01/27/18 04:55 01/27/18 04:55 Medications: Active Medications Generic Name Dose Route Start Last Admin Trade Name Freq PRN Reason Stop Dose Admin Benzocaine/Menthol 1 lozenge 01/21/18 14:00 01/22/18 05:22 Chloraseptic Sore Throat Lozenge BUCCAL 1 lozenge Q2H PRN Administration SORE THROAT Pantoprazole Sodium 40 mg 01/21/18 10:00 01/27/18 09:11 Protonix Inj IV.PUSH 40 mg DAILY SUSY Administration Senna/Docusate Sodium 1 tab 01/20/18 21:00 01/27/18 20:09 Mimi-Colace PO 1 tab BID SUSY Administration Objective Remarks: GENERAL: Well-nourished, well-developed male patient, in no acute distress. SKIN: Warm and dry. HEAD: Normocephalic. EYES: No scleral icterus. No injection or drainage. NECK: Supple, trachea midline. CARDIOVASCULAR: Regular rate and rhythm without murmurs. RESPIRATORY: Breath sounds clear, equal bilaterally. No accessory muscle use. GASTROINTESTINAL: Abdomen soft, non-tender, nondistended. Scar to mid abdomen. +BS. EXTREMITIES: No cyanosis, or edema. MUSCULOSKELETAL: Adequate muscle tone. NEUROLOGICAL: No obvious focal deficit. Awake, alert, and oriented x3. PSYCHIATRIC: Normal mood; insight and judgment normal. Assessment/Plan - Plan Mr. Reina is a pleasant 72-year-old gentleman who is currently hospitalized with a partial small bowel obstruction. 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 Patient has had approximately 2 weeks of abdominal pain, bloating and intermittent watery bowel movements. He had an outpatient PET scan which revealed a possible small bowel obstruction. This was confirmed with CT. Plan: 1. Status post CHOP chemotherapy yesterday. Pt tolerated well. 2. Tolerating 1-2 ensures with each meal. 3. Patient is cleared for discharge from an oncology standpoint. He has an appointment tomorrow in the [place] office to receive Neulasta. He also has a scheduled follow-up with his oncologist and an order for his labs. - Attending Statement The exam, history, and the medical decision-making described in the above note were completed with the assistance of the mid-level provider. I reviewed and agree with the findings presented. I attest that I had a [id number] encounter with the patient on the same day, and personally performed and documented my assessment and findings in the medical record. Pt feeling well, no vomiting, eager to go home. Arrangements made for yajaira at [facility] tomorrow. DC home today.
[2018-01-28] MEDS: Senna/Docusate Sodium 8.6/50 MG Tablet PO SCH (09:43)
[2018-01-28] MEDS: Pantoprazole Inj 40 MG Vial IV.PUSH SCH (09:43)
[2018-01-28] MEDS ORDERED: Ketorolac Inj 30 MG/ML (IVP) Vial IV.PUSH ONE (09:45)
[2018-01-28] MEDS ORDERED: predniSONE 20 MG Tablet PO ONE (12:01)
== END 2018-01-28 12:16 | disposition home or self-care (01) ==
LOC: HCIN 15:34 → HCIS 01-27 08:39 → HCIN 01-27 08:47
PROVIDERS: ADMIT Internal Medicine Hematology & Oncology; ATTEND Internal Medicine Hematology & Oncology